=== PATIENT | male | born 1960 | race Caucasian/White ===

== ENCOUNTER 2019-02-08 11:14 | Emergency (ER) | payer SELFPAY ==
[2019-02-08] MEDS ORDERED: ASPIRIN 81 MG TABLET, CHEWABLE PO ONE (11:40)
[2019-02-08] MEDS ORDERED: NITROGLYCERIN/D5W 50 MG/250 ML RTUINJ IV PRN (11:52)
[2019-02-08] MEDS ORDERED: ENOXAPARIN SODIUM INJ 120 MG/0.8 ML DISP.SYRIN SUBCUT ONE (11:53)
[2019-02-08 12:09] LABS: ALANINE AMINOTRANSFERASE 58 U/L (21-72); ALBUMIN 3.5 g/dL (3.5-5.0); ALKALINE PHOSPHATASE 99 U/L (38-126); ANION GAP 12 (5-19); ASPARTATE AMINO TRANSFERASE 66 U/L (17-59); BILIRUBIN,DIRECT 0.3 mg/dL (0.0-0.4); BILIRUBIN,TOTAL 0.6 mg/dL (0.2-1.3); BLOOD UREA NITROGEN 70 mg/dL (7-20); CALCIUM 8.5 mg/dL (8.4-10.2); CARBON DIOXIDE 28 mmol/L (22-30); CHLORIDE 100 mmol/L (98-107); CREATINE KINASE 451 U/L (55-170); GLUCOSE 92 mg/dL (75-110); POTASSIUM 4.1 mmol/L (3.6-5.0); SODIUM 139.5 mmol/L (137-145); TOTAL PROTEIN 6.9 g/dL (6.3-8.2)
[2019-02-08 12:13] LABS: INTERNATIONAL RATION (INR) 1.02; PROTHROMBIN TIME 13.9 SEC (11.4-15.4)
--- NOTE | 2019-02-08 12:13 | RADIOLOGY REPORT (SQ) ---
EXAM DESCRIPTION: CHEST SINGLE VIEW COMPLETED DATE/TIME: 02/08/2019 12:05 pm REASON FOR STUDY: chest pain COMPARISON: None. NUMBER OF VIEWS: One view. TECHNIQUE: Single frontal radiographic view of the chest acquired. LIMITATIONS: None. FINDINGS: LUNGS AND PLEURA: No opacities, masses or pneumothorax. No pleural effusion. MEDIASTINUM AND HILAR STRUCTURES: No masses. Contour normal. HEART AND VASCULAR STRUCTURES: Heart enlarged without failure. Normal vasculature. BONES: No acute findings. HARDWARE: None in the chest. OTHER: No other significant finding. IMPRESSION: HEART ENLARGED WITHOUT FAILURE. NO OTHER SIGNIFICANT RADIOGRAPHIC FINDING IN THE CHEST. TECHNICAL DOCUMENTATION: JOB ID: [id number] [employer]- All Rights Reserved Reading location - IP/workstation name: [email or web address]
[2019-02-08 12:15] LABS: ABSOLUTE BASOPHILS # (AUTO) 0.1 10^3/uL (0.0-0.2); ABSOLUTE EOSINOPHILS # (AUTO) 0.1 10^3/uL (0.0-0.6); ABSOLUTE LYMPHOCYTES (AUTO) 1.6 10^3/uL (0.5-4.7); ABSOLUTE MONOCYTES (AUTO) 1.8 10^3/uL (0.1-1.4); ABSOLUTE NEUT (AUTO) 9.1 10^3/uL (1.7-8.2); BASOPHILS % (AUTO) 0.5 % (0-2); EOSINOPHILS % (AUTO) 0.6 % (0-6); HEMATOCRIT 46.5 % (37.9-51.0); HEMOGLOBIN 15.6 g/dL (13.5-17.0); LYMPHOCYTES % (AUTO) 12.8 % (13-45); MEAN CORPUSCULAR HGB CONC 33.5 g/dL (32.0-36.0); MEAN CORPUSCULAR VOLUME 84 fl (80-97); MONOCYTES % (AUTO) 14.2 % (3-13); PLATELET COUNT 321 10^3/uL (150-450); RED BLOOD COUNT 5.56 10^6/uL (4.35-5.55); RED CELL DISTRIBUTION WIDTH 14.9 % (11.5-14.0); SEGMENTED NEUTROPHILS % (AUTO) 71.9 % (42-78); TOTAL CELLS COUNTED % (AUTO) 100 %; WHITE BLOOD COUNT 12.7 10^3/uL (4.0-10.5)
[2019-02-08 12:20] LABS: CREATINE KINASE MB 3.93 ng/mL (<4.55)
--- NOTE | 2019-02-08 12:22 | ER Document Report ---
ED General - General Chief Complaint: Chest Pain Stated Complaint: CHEST PAIN Time Seen by Provider: 02/08/19 11:40 - HPI Notes: Patient is a 59-year-old male with a history of hypertension, hyperlipidemia, diabetes, presents to the emergency department for evaluation of chest pain. He states that it has been going on for the last several days. He is a very difficult historian. He cannot tell me anything that seems to make it better. He states he woke up this morning and it seemed worse. He believes it was from sleeping on his left shoulder. I asked him to describe it, he states "it just hurts." He denies any associated nausea, diaphoresis, shortness of breath, near syncope. He states that the pain does radiate into his shoulder blade. - Related Data Allergies/Adverse Reactions: No Known Allergies Allergy (Verified 02/08/19 11:15) Past Medical History - General Information source: Patient - Social History Smoking Status: Current Every Day Smoker Drug Abuse: None Family History: Reviewed & Not Pertinent - Past Medical History Cardiac Medical History: Reports: Hx Hypercholesterolemia, Hx Hypertension Denies: Hx Atrial Fibrillation, Hx Congestive Heart Failure, Hx Coronary Artery Disease, Hx Heart Attack, Hx Peripheral Vascular Disease, Hx Pulmonary Embolism, Hx Heart Murmur Pulmonary Medical History: Denies: Hx Asthma, Hx Bronchitis, Hx COPD, Hx Pneumonia, Hx Respiratory Failure, Hx Sleep Apnea, Hx Tuberculosis Neurological Medical History: Denies: Hx Cerebrovascular Accident, Hx Seizures Endocrine Medical History: Denies: Hx Diabetes Mellitus Type 1, Hx Diabetes Mellitus Type 2, Hx Graves' Disease, Hx Hyperthyroidism, Hx Hypothyroidism Renal/ Medical History: Denies: Hx Benign Prostatic Hyperplasia, Hx End Stage Renal Disease, Hx Kidney Stones, Hx Peritoneal Dialysis Malignancy Medical History: Denies Hx Leukemia, Denies Hx Lung Cancer GI Medical History: Reports: Hx Gastroesophageal Reflux Disease. Denies: Hx Crohn's Disease, Hx Hiatal Hernia, Hx Irritable Bowel, Hx Liver Failure, Hx Pancreatitis, Hx Ulcer Musculoskeletal Medical History: Denies Hx Arthritis, Denies Hx Fibromyalgia, Denies Hx Multiple Sclerosis, Denies Hx Muscular Dystrophy, Denies Hx Systemic L upus Erythematosus Psychiatric Medical History: Denies: Hx Bipolar Disorder, Hx Dementia, Hx Depression, Hx Post Traumatic Stress Disorder, Hx Schizophrenia Traumatic Medical History: Reports: Hx Fractures - left arm/shoulder Infectious Medical History: Denies: Hx HIV Past Surgical History: Reports: Hx Tonsillectomy. Denies: Hx Appendectomy, Hx Bowel Surgery, Hx Cholecystectomy, Hx Colostomy, Hx Coronary Artery Bypass Graft, Hx Gastric Bypass Surgery, Hx Herniorrhaphy, Hx Pacemaker - Immunizations Hx Diphtheria, Pertussis, Tetanus Vaccination: - <5 yrs Review of Systems - Review of Systems Constitutional: No symptoms reported EENT: No symptoms reported Cardiovascular: No symptoms reported Respiratory: No symptoms reported Gastrointestinal: No symptoms reported Genitourinary: No symptoms reported Musculoskeletal: No symptoms reported Skin: No symptoms reported Neurological/Psychological: No symptoms reported Physical Exam - Vital signs Vitals: Temp Pulse Resp BP Pulse Ox 98.0 F 81 18 104/66 100 02/08/19 11:18 02/08/19 11:18 02/08/19 11:18 02/08/19 11:02/08/19 11:18 - Notes Notes: Vital signs reviewed, please refer to chart. Head is normocephalic, atraumatic. Pupils equal round, reactive to light. Neck is supple without meningismus. Heart is regular rate and rhythm. Lungs are clear to auscultation bilaterally. Abdomen is soft, nontender, normoactive bowel sounds throughout. Extremities without cyanosis, clubbing. Posterior calves are nontender. Peripheral pulses are equal. Skin is warm and dry. Patient is awake, alert, neurological exam is nonfocal. Course - Re-evaluation Re-evalutation: 02/08/19 12:29 Patient presented to the emergency department for evaluation. I was initially showed this patient's EKG with significant ST elevation anteriorly. I was concerned about the possibility of a STEMI, so I went to evaluate the patient to me early. The patient denied, emphatically and repeatedly, having any sort of pain at all at this time. He was medicated to aspirin, nitroglycerin at a 5 my drip, as well as Lovenox. Unfortunately I did not have his creatinine back at the time of the Lovenox administration. Laboratory investigations were started, decision was made to consult cardiology. I spoke with Dr. Fletcher my inventory control assistant at [facility]. He was sent a picture of the EKG. He states that in the absence of chest pain, without any laboratory abnormalities, he did not feel that acceptance directly by cardiology was necessary. I was notified shortly after getting off the phone, that the patient's troponin was 46. Decision was made at that time to send the patient directly to [facility] cardiology for interventional cardiac catheterization. - Vital Signs Vital signs: Temp Pulse Resp BP Pulse Ox 98.0 F 81 18 104/66 100 02/08/19 11:18 02/08/19 11:18 02/08/19 11:18 02/08/19 11:18 02/08/19 11:18 - Laboratory Result Diagrams: 02/08/19 11:36 02/08/19 11:36 Laboratory results interpreted by me: 02/08/19 02/08/19 11:36 11:36 WBC 12.7 H RBC 5.56 H RDW 14.9 H Lymphocytes % 12.8 L Monocytes % 14.2 H Absolute Neutrophils 9.1 H Absolute Monocytes 1.8 H BUN 70 H Creatinine 2.63 H Est GFR ( Amer) 30 L Est GFR (Non-Af Amer) 25 L AST 66 H Creatine Kinase 451 H - Diagnostic Test Radiology reviewed: Reports reviewed Radiology results interpreted by me: 02/08/19 12:31 Chest X-Ray 02/08/19 11:41 IMPRESSION: HEART ENLARGED WITHOUT FAILURE. NO OTHER SIGNIFICANT RADIOGRAPHIC FINDING IN THE CHEST. - EKG Interpretation by Me Additional EKG results interpreted by me: 02/08/19 12:32 Sinus mechanism with a rate of 88 bpm. Left axis deviation. IVCD. ST elevation anteriorly concerning for acute infarction, but no reciprocal changes noted at this time. Critical Care Note - Critical Care Note Total time excluding time spent on procedures (mins): 20 Discharge - Discharge Clinical Impression: ST elevation (STEMI) myocardial infarction Condition: Stable Disposition: [facility] Admitting Provider: Dr. Fletcher
[2019-02-08 12:25] LABS: TROPONIN I 46.7 ng/mL
[2019-02-08 12:50] VITALS: BP 129/71
--- NOTE | 2019-02-08 17:48 | EKG REPORT ---
SEVERITY:- ABNORMAL ECG - SINUS RHYTHM PROBABLE LEFT ATRIAL ABNORMALITY INFERIOR INFARCT, AGE INDETERMINATE ANTERIOR INFARCT, AGE INDETERMINATE. LATERAL LEADS ARE ALSO INVOLVED : Confirmed by: Linus Zhang MD 08-Feb-2019 17:48:01
--- NOTE | 2019-02-08 17:49 | EKG REPORT ---
SEVERITY:- ABNORMAL ECG - SINUS RHYTHM LEFT ATRIAL ABNORMALITY NONSPECIFIC INTRAVENTRICULAR CONDUCTION DELAY INFERIOR INFARCT, AGE INDETERMINATE EXTENSIVE ANTERIOR INFARCT, ACUTE : Confirmed by: Linus Zhang MD 08-Feb-2019 17:48:42
--- NOTE | 2019-02-08 23:46 | EKG REPORT ---
SEVERITY:- ABNORMAL ECG - SINUS RHYTHM PROBABLE LEFT ATRIAL ABNORMALITY NONSPECIFIC INTRAVENTRICULAR CONDUCTION DELAY INFERIOR INFARCT, AGE INDETERMINATE EXTENSIVE ANTERIOR INFARCT, ACUTE : Confirmed by: Linus Zhang MD 08-Feb-2019 23:46:15
== END 2019-02-08 12:36 | disposition short-term general hospital (02) ==
LOC: ER 11:14
DX: I21.3 ST elevation (STEMI) myocardial infarction of unspecified site (principal); I11.9 Hypertensive heart disease without heart failure; R07.9 Chest pain, unspecified; F17.200 Nicotine dependence, unspecified, uncomplicated; I45.9 Conduction disorder, unspecified
CPT/HCPCS: 93005; 99285; 96372; 36415; 82553; 82962; 82550; 85025; 85610; 80053; 84484; 71045; 93010; J1650; J3490

== ENCOUNTER 2019-05-07 08:10 | Inpatient (IN) | payer OTHER ==
[2019-05-07 09:01] LABS: ABSOLUTE BASOPHILS # (AUTO) 0.1 10^3/uL (0.0-0.2); ABSOLUTE EOSINOPHILS # (AUTO) 0.3 10^3/uL (0.0-0.6); ABSOLUTE LYMPHOCYTES (AUTO) 2.1 10^3/uL (0.5-4.7); ABSOLUTE MONOCYTES (AUTO) 0.8 10^3/uL (0.1-1.4); ABSOLUTE NEUT (AUTO) 6.2 10^3/uL (1.7-8.2); EOSINOPHILS % (AUTO) 3.1 % (0-6); HEMATOCRIT 42.4 % (37.9-51.0); HEMOGLOBIN 14.1 g/dL (13.5-17.0); MEAN CORPUSCULAR HEMOGLOBIN 27.6 pg (27.0-33.4); MEAN CORPUSCULAR HGB CONC 33.4 g/dL (32.0-36.0); MEAN CORPUSCULAR VOLUME 83 fl (80-97); PLATELET COUNT 292 10^3/uL (150-450); RED BLOOD COUNT 5.13 10^6/uL (4.35-5.55); RED CELL DISTRIBUTION WIDTH 16.9 % (11.5-14.0); SEGMENTED NEUTROPHILS % (AUTO) 65.9 % (42-78); TOTAL CELLS COUNTED % (AUTO) 100 %; WHITE BLOOD COUNT 9.5 10^3/uL (4.0-10.5)
--- NOTE | 2019-05-07 09:10 | ER Document Report ---
ED General - General Chief Complaint: Breathing Difficulty Stated Complaint: DIFFICULTY BREATHING Time Seen by Provider: 05/07/19 08:54 Mode of Arrival: Ambulatory Information source: Patient, [facility] Records Notes: This 5-year-old male patient comes emergency room complaining of difficulty breathing for the past 3 months. He was seen here on 02/08/2019 have an extensive anterior wall WA. He was transferred to [facility] and had 2 stents placed. He reports that since then he wakes up during the night and "cannot breathe". He will have to get up, stand up to "get some air in my lungs". This standing up and pacing seems to help. He reports he did tell his pet ambassador about this nocturnal shortness of breath and chest pressure and his complaint like he felt like he has to get up to take control of his breathing. He reports his pet ambassador's stop some meds and added some meds. This did not make any difference initially, but then the patient change the timing of his medication and rather than taking some at 6 AM, he took them at noon. He reports that seem to help his symptoms for a few days, but then he began to wake up during the night with the same sensation of being unable to breathe. The patient does continue to smoke about 1 pack/day, states he has some patches to help, but [facility] - Related Data Allergies/Adverse Reactions: No Known Allergies Allergy (Verified 05/07/19 08:15) Past Medical History - General Information source: Patient - Social History Smoking Status: Current Every Day Smoker Cigarette use (# per day): Yes - 1 PPD Chew tobacco use (# tins/day): No Smoking Education Provided: No Frequency of alcohol use: None Drug Abuse: None Lives with: Spouse/Significant other Family History: Reviewed & Not Pertinent - Past Medical History Cardiac Medical History: Reports: Hx Coronary Artery Disease, Hx Heart Attack, Hx Hypercholesterolemia, Hx Hypertension GI Medical History: Reports: Hx Gastroesophageal Reflux Disease Traumatic Medical History: Reports: Hx Fractures - left arm/shoulder Past Surgical History: Reports: Hx Cardiac Catheterization, Hx Coronary Stent - X2, Hx Tonsillectomy - Immunizations Hx Diphtheria, Pertussis, Tetanus Vaccination: - <5 yrs Physical Exam - Vital signs Vitals: Temp Pulse Resp BP Pulse Ox 97.8 F 102 H 18 200/120 H 96 05/07/19 08:13 05/07/19 08:13 05/07/19 08:13 05/07/19 08:13 05/07/19 08:13 Course - Re-evaluation Re-evalutation: 05/07/19 12:38 The patient's BNP is 3540, 7 years ago it was 185. The patient's troponins is in the indeterminate range, a repeat troponin was slightly lower than the initial one. The patient's symptoms of the nocturnal dyspnea which improved with getting up combined with this markedly elevated BNP suggest the patient may have some degree of congestive failure secondary to his recent extensive anterior wall my ocardial infarction. - Vital Signs Vital signs: Temp Pulse Resp BP Pulse Ox 97.8 F 102 H 22 H 151/96 H 95 05/07/19 08:13 05/07/19 08:13 05/07/19 10:01 05/07/19 10:01 05/07/19 10:01 - Laboratory Result Diagrams: 05/07/19 08:48 05/07/19 08:48 Laboratory results interpreted by me: 05/07/19 05/07/19 05/07/19 08:48 08:48 08:48 RDW 16.9 H BUN 23 H Creatinine 1.73 H Est GFR ( Amer) 49 L Est GFR (Non-Af Amer) 40 L NT-Pro-B Natriuret Pep 3540 H Urine Protein Urine Ascorbic Acid 05/07/19 10:45 RDW BUN Creatinine Est GFR ( Amer) Est GFR (Non-Af Amer) NT-Pro-B Natriuret Pep Urine Protein 100 H Urine Ascorbic Acid 40 H - Diagnostic Test Radiology reviewed: Image reviewed, Reports reviewed - X-ray does not show acute findings. - EKG Interpretation by Me EKG shows normal: Sinus rhythm, Lampe, Intervals, ST-T Waves. abnormal: QRS Complexes - Old inferior infarct. Extensive anterior infarct--this was present on 02/08/2019. Rate: Normal - 99 Rhythm: NSR P Waves: LAE - Consults Dr. Montero Time consulted: 12:25 Consulted provider: will come to ER Discharge - Discharge Clinical Impression: Nocturnal dyspnea Congestive heart failure Qualifiers: Heart failure type: unspecified Heart failure chronicity: unspecified Qualified Code(s): I50.9 - Heart failure, unspecified Coronary artery disease Qualifiers: Coronary Disease-Associated Artery/Lesion type: unspecified vessel or lesion type [place] vs. transplanted heart: [place] heart Associated angina: without angina Qualified Code(s): I25.10 - Atherosclerotic heart disease of [place] coronary artery without angina pectoris Condition: Stable Disposition: ADMITTED INPATIENT Admitting Provider: Kylah (Hospitalist) Unit Admitted: Telemetry
[2019-05-07 09:17] LABS: ALBUMIN 4.1 g/dL (3.5-5.0); ALKALINE PHOSPHATASE 124 U/L (38-126); ANION GAP 10 (5-19); ASPARTATE AMINO TRANSFERASE 18 U/L (17-59); BILIRUBIN,DIRECT 0.2 mg/dL (0.0-0.4); BILIRUBIN,TOTAL 0.4 mg/dL (0.2-1.3); BLOOD UREA NITROGEN 23 mg/dL (7-20); CALCIUM 9.6 mg/dL (8.4-10.2); CARBON DIOXIDE 25 mmol/L (22-30); CHLORIDE 106 mmol/L (98-107); CREATINE KINASE 63 U/L (55-170); GLUCOSE 107 mg/dL (75-110); POTASSIUM 4.6 mmol/L (3.6-5.0); TOTAL PROTEIN 7.3 g/dL (6.3-8.2)
--- NOTE | 2019-05-07 09:25 | RADIOLOGY REPORT (SQ) ---
EXAM DESCRIPTION: CHEST SINGLE VIEW COMPLETED DATE/TIME: 05/07/2019 8:58 am REASON FOR STUDY: bed 20 db COMPARISON: 02/08/2019 EXAM PARAMETERS: NUMBER OF VIEWS: One view. TECHNIQUE: Single frontal radiographic view of the chest acquired. RADIATION DOSE: NA LIMITATIONS: None. FINDINGS: LUNGS AND PLEURA: No opacities, masses or pneumothorax. No pleural effusion. MEDIASTINUM AND HILAR STRUCTURES: No masses. Contour normal. HEART AND VASCULAR STRUCTURES: Heart normal in size. Normal vasculature. BONES: No acute findings. HARDWARE: None in the chest. OTHER: No other significant finding. IMPRESSION: NO ACUTE RADIOGRAPHIC FINDING IN THE CHEST. TECHNICAL DOCUMENTATION: JOB ID: [id number] [employer]- All Rights Reserved Reading location - IP/workstation name: [email or web address]
[2019-05-07 09:29] LABS: CREATINE KINASE MB 1.39 ng/mL (<4.55)
[2019-05-07 09:35] LABS: TROPONIN I 0.04 ng/mL
[2019-05-07 11:10] LABS: APPEARANCE,URINE CLEAR; BILIRUBIN,URINE NEGATIVE (NEGATIVE); COLOR,URINE YELLOW; GLUCOSE, URINE NEGATIVE (NEGATIVE); KETONES,URINE NEGATIVE (NEGATIVE); LEUKOCYTE ESTERASE,URINE NEGATIVE (NEGATIVE); NITRITE,URINE NEGATIVE (NEGATIVE); PROTEIN,URINE 100 mg/dL (NEGATIVE); URINE SPECIFIC GRAVITY 1.015; UROBILINOGEN,URINE NEGATIVE mg/dL (<2.0)
--- NOTE | 2019-05-07 11:24 | EKG REPORT ---
SEVERITY:- ABNORMAL ECG - SINUS RHYTHM PROBABLE LEFT ATRIAL ABNORMALITY PROBABLE INFERIOR INFARCT, OLD EXTENSIVE ANTERIOR INFARCT, ACUTE or subacute : Confirmed by: Rona Sharma 07-May-2019 11:23:33
[2019-05-07] MEDS ORDERED: ONDANSETRON HCL INJ/PF 4 MG/2 ML SDV IV PRN (14:22)
[2019-05-07] MEDS ORDERED: ACETAMINOPHEN 325 MG TABLET PO PRN (14:22)
[2019-05-07] MEDS: ATORVASTATIN CALCIUM 40 MG TABLET PO SCH (15:06)
[2019-05-07] MEDS: CLOPIDOGREL BISULFATE 75 MG TABLET PO SCH (15:07)
[2019-05-07] MEDS: TAMSULOSIN HCL 0.4 MG CAP.SR.24H PO SCH (15:07)
[2019-05-07] MEDS: ASPIRIN 81 MG TABLET, ENT COATED PO SCH (15:07)
--- NOTE | 2019-05-07 16:14 | PDOC H&P ---
History of Present Illness Admission Date/PCP: 05/07/19 13:13 Patient complains of: Shortness of breath History of Present Illness: MECHE MEJÍA is a 59 year old male with a past medical history of hypertension, hyperlipidemia, diabetes and tobacco abuse who presented to the ED complaining of shortness of breath for the last 2 months. Patient states that he has been having shortness of breath for the last 2 months intermittently. He is a poor historian and unable to identify his shortness of breath and when it really occurs. He does not associated with chest pain, jaw pain, left arm weakness, nausea/vomiting, abdominal pain, dizziness or blurry vision. Patient states that in January of this year he came to the ED due to chest pain that time he was found to have a troponin greater than 40 and was transferred to [facility] where he was diagnosed with a heart attack where he remained for almost 1 month. States he was discharged from [facility] and since then has been having shortness of breath intermittently. He does have a attribute his shortness of breath to laying down sometimes flat on his back and states that sometimes he has to stand up which helps resolve his shortness of breath. He also admits to being to to hand method lasting machine operator since discharge and talking to them about it. Today he came to the ER because nobody was able to tell him about her shortness of breath and he was just getting tired of waiting. He tells me that he has a cardiology appointment next week and will be following up with his hand method lasting machine operator although he does not know the name. When I walked into the ER to see patient he was sitting there comfortably, without any pain or shortness of breath, and eating [employer] burgers with soda and fries. Hospitalist were consulted due to suspected CHF given his history of shortness of breath while laying flat. Past Medical History Cardiac Medical History: Reports: Coronary Artery Disease, Myocardial Infarction, Hyperlipidema, Hypertension Denies: Atrial Fibrillation, Congestive Heart Failure Pulmonary Medical History: Denies: Asthma, Bronchitis, Chronic Obstructive Pulmonary Disease (COPD), Pneumonia, Tuberculosis Neurological Medical History: Denies: Seizures Endocrine Medical History: Denies: Diabetes Mellitus Type 1, Diabetes Mellitus Type 2 Renal/ Medical History: Denies: End Stage Renal Disease Malignancy Medical History: Denies: Breast Cancer, Cervical Cancer, Ovarian Cancer GI Medical History: Reports: Gastroesophageal Reflux Disease Denies: Hiatal Hernia Musculoskeltal Medical History: Denies: Arthritis Psychiatric Medical History: Denies: Bipolar Disorder, Depression Hematology: Denies: Anemia, Hemophilia, Sickle Cell Disease Past Surgical History Past Surgical History: Reports: Cardiac Catheterization, Coronary Stent - X2, Tonsillectomy Denies: Appendectomy, Cholecystectomy Social History Lives with: Spouse/Significant other Smoking Status: Current Every Day Smoker Hx Recreational Drug Use: No Hx Prescription Drug Abuse: No - Advance Directive Resuscitation Status: Full Code Family History Family History: Reviewed & Not Pertinent Parental Family History Reviewed: Yes Children Family History Reviewed: Unknown Sibling(s) Family History Reviewed.: Unknown Medication/Allergy Home Medications: Aspirin [Adult Low Dose Aspirin EC] 81 mg PO DAILY 05/07/19 Atorvastatin Calcium [Lipitor 40 mg Tablet] 40 mg PO DAILY 05/07/19 Clopidogrel Bisulfate [Plavix 75 mg Tablet] 75 mg PO DAILY 05/07/19 Furosemide [Lasix 40 mg Tablet] 40 mg PO DAILY 05/07/19 Lisinopril [Zestril] 20 mg PO DAILY 05/07/19 Tamsulosin HCl [Flomax] 0.4 mg PO DAILY 05/07/19 Allergies/Adverse Reactions: No Known Allergies Allergy (Verified 05/07/19 08:15) Review of Systems Constitutional: ABSENT: fever(s) Eyes: ABSENT: visual disturbances Nose, Mouth, and Throat: ABSENT: sore throat Cardiovascular: PRESENT: orthropnea. ABSENT: chest pain, dyspnea on exertion, edema Respiratory: PRESENT: other - Shortness of breath Gastrointestinal: ABSENT: abdominal pain, dysphagia, heartburn, nausea, vomiting Genitourinary: ABSENT: dysuria Neurological: ABSENT: focal weakness, syncope Psychiatric: ABSENT: hallucinations Hematologic/Lymphatic: ABSENT: easy bleeding Physical Exam Vital Signs: Temp Pulse Resp BP Pulse Ox 97.8 F 102 H 26 H 158/95 H 93 05/07/19 08:13 05/07/19 08:13 05/07/19 13:01 05/07/19 13:01 05/07/19 13:01 Intake & Output 05/06/19 05/07/19 05/08/19 06:59 06:59 06:59 Weight 234 lb 5.622 oz General appearance: PRESENT: no acute distress Head exam: PRESENT: atraumatic, normocephalic Eye exam: PRESENT: EOMI Mouth exam: PRESENT: moist Neck exam: ABSENT: tracheal deviation Respiratory exam: PRESENT: decreased breath sounds - Bilaterally and mostly at the bases, symmetrical Cardiovascular exam: PRESENT: +S1, +S2 Pulses: PRESENT: +2 pedal pulses bilateral GI/Abdominal exam: PRESENT: normal bowel sounds, soft. ABSENT: tenderness Extremities exam: PRESENT: pedal edema - Trace pedal edema Musculoskeletal exam: PRESENT: full ROM, normal inspection Neurological exam: PRESENT: alert, awake, oriented to person, oriented to place, CN II-XII grossly intact Skin exam: PRESENT: dry, warm Results Laboratory Results: 05/07/19 08:48 05/07/19 08:48 05/07/19 05/07/19 05/07/19 08:48 08:48 10:45 WBC 9.5 RBC 5.13 Hgb 14.1 Hct 42.4 MCV 83 MCH 27.6 MCHC 33.4 RDW 16.9 H Plt Count 292 Seg Neutrophils % 65.9 Lymphocytes % 22.0 Monocytes % 8.0 Eosinophils % 3.1 Basophils % 1.0 Absolute Neutrophils 6.2 Absolute Lymphocytes 2.1 Absolute Monocytes 0.8 Absolute Eosinophils 0.3 Absolute Basophils 0.1 Sodium 141.0 Potassium 4.6 Chloride 106 Carbon Dioxide 25 Anion Gap 10 BUN 23 H Creatinine 1.73 H Est GFR ( Amer) 49 L Est GFR (Non-Af Amer) 40 L Glucose 107 Calcium 9.6 Total Bilirubin 0.4 AST 18 Alkaline Phosphatase 124 Total Protein 7.3 Albumin 4.1 Urine Color YELLOW Urine Appearance CLEAR Urine pH 5.0 Ur Specific Cook 1.015 Urine Protein 100 H Urine Glucose (UA) NEGATIVE Urine Ketones NEGATIVE Urine Blood NEGATIVE Urine Nitrite NEGATIVE Ur Leukocyte Esterase NEGATIVE Urine WBC (Auto) 2 Urine RBC (Auto) 0 05/07/19 05/07/19 05/07/19 08:48 08:48 08:48 Creatine Kinase 63 CK-MB (CK-2) 1.39 Troponin I 0.040 NT-Pro-B Natriuret Pep 3540 H 05/07/19 11:12 Creatine Kinase CK-MB (CK-2) Troponin I 0.039 NT-Pro-B Natriuret Pep Impressions: Chest X-Ray 05/07/19 08:12 IMPRESSION: NO ACUTE RADIOGRAPHIC FINDING IN THE CHEST. Assessment and Plan - Diagnosis (1) Shortness of breath Is this a current diagnosis for this admission?: Yes (2) Hypertension Is this a current diagnosis for this admission?: Yes (3) Tobacco abuse disorder Is this a current diagnosis for this admission?: Yes (4) Congestive heart failure Qualifiers: Heart failure type: unspecified Heart failure chronicity: unspecified Qualified Code(s): I50.9 - Heart failure, unspecified Is this a current diagnosis for this admission?: Yes (5) Coronary artery disease Qualifiers: Coronary Disease-Associated Artery/Lesion type: unspecified vessel or lesion type [place] vs. transplanted heart: [place] heart Associated angina: without angina Qualified Code(s): I25.10 - Atherosclerotic heart disease of [place] coronary artery without angina pectoris Is this a current diagnosis for this admission?: Yes - Time Time Spent with patient: 35 or more minutes Medications reviewed and adjusted accordingly: Yes Anticipated discharge: Home Within: within 48 hours - Inpatient Certification Based on my medical assessment, after consideration of the patient's comorbidities, presenting symptoms, or acuity I expect that the services needed warrant INPATIENT care.: Yes I certify that my determination is in accordance with my understanding of Medicare's requirements for reasonable and necessary INPATIENT services [42 CFR 412.3e].: Yes Medical Necessity: Need For Continuous Telemetry Monitoring, Risk of Complication if Not Cared For in Hospital - Plan Summary Plan Summary: Shortness of breath-with recent history of an STEMI which was diagnosed in January of this year we will have to rule out cardiac event versus heart failure. His EKG looks similar to the one from January. He was transferred to [place] at that time and I have asked nursing to get records for his echo from January of this year. He is on Lasix at home and I will continue that-his BNP is elevated and greater than 3000 although his chest x-ray does not show any edema. He however attest to shortness of breath while laying flat at night. We will trend troponins and recheck electrolytes in the morning. Coronary artery disease with stents x2-we will continue with his aspirin, Plavix and metoprolol and statin. Hypertension-stable continue with metoprolol Tobacco abuse-he still continues to smoke half pack a day-I have counseled him on tobacco abuse.
--- NOTE | 2019-05-07 17:33 | ADVANCED CARE ---
- Diagnosis (1) Shortness of breath Diagnosis Current: Yes (2) Hypertension Diagnosis Current: Yes (3) Tobacco abuse disorder Diagnosis Current: Yes (4) Congestive heart failure Diagnosis Current: Yes (5) Coronary artery disease Diagnosis Current: Yes (6) Elevated troponin Diagnosis Current: Yes (7) Elevated serum creatinine Diagnosis Current: Yes Resuscitation Status: Full Code Discussion: Spoke with patient regarding his wishes about resuscitation-I explained to him what it needs to be DNR versus full code and also partial code. We went over different scenarios during his stay in the hospital. After much discussion he informed me that he would like full resuscitation and everything to be done at this time. I asked him who will be his surrogate decision-maker if the time should arrive and he tells me it is his [id number] Dorota Jeremiah Time Spent: 20
[2019-05-07] MEDS: HYDRALAZINE HCL INJ/PF 20 MG/1 ML SDV IV PRN ×2 (18:56→22:55)
[2019-05-07 18:59] LABS: ARTERIAL BLOOD H2CO3 1.08 mmol/L (1.05-1.35); ARTERIAL BLOOD HCO3 24.5 mmol/L (20-24); ARTERIAL BLOOD O2 SATURATION 93.8 % (94-98); ARTERIAL BLOOD PCO2 35.8 mmHg (35-45); ARTERIAL BLOOD PH 7.45 (7.35-7.45); ARTERIAL BLOOD PO2 65.2 mmHg (80-100); ARTERIAL BLOOD TOTAL CO2 25.6 mmol/L (23-27)
[2019-05-07 19:00] LABS: ARTERIAL BLOOD FIO2 ROOM AIR
[2019-05-07] MEDS ORDERED: LISINOPRIL 10 MG TABLET PO SCH (20:00)
[2019-05-07] MEDS: HEPARIN SOD (PORCINE) 5,000 UNIT/ML 1 ML VIAL SUBCUT SCH (22:57)
[2019-05-08] MEDS: HEPARIN SOD (PORCINE) 5,000 UNIT/ML 1 ML VIAL SUBCUT SCH ×3 (05:06→21:46)
[2019-05-08 05:59] LABS: HEMATOCRIT 41.5 % (37.9-51.0); HEMOGLOBIN 13.7 g/dL (13.5-17.0); MEAN CORPUSCULAR HEMOGLOBIN 27.3 pg (27.0-33.4); MEAN CORPUSCULAR HGB CONC 33.1 g/dL (32.0-36.0); MEAN CORPUSCULAR VOLUME 83 fl (80-97); PLATELET COUNT 297 10^3/uL (150-450); RED BLOOD COUNT 5.02 10^6/uL (4.35-5.55); RED CELL DISTRIBUTION WIDTH 17.1 % (11.5-14.0); WHITE BLOOD COUNT 10.2 10^3/uL (4.0-10.5)
[2019-05-08 06:29] LABS: ANION GAP 7 (5-19); BLOOD UREA NITROGEN 21 mg/dL (7-20); CALCIUM 9.3 mg/dL (8.4-10.2); CARBON DIOXIDE 23 mmol/L (22-30); CHLORIDE 110 mmol/L (98-107); GLUCOSE 107 mg/dL (75-110); POTASSIUM 4.7 mmol/L (3.6-5.0)
[2019-05-08] MEDS: IPRATROPIUM/ALBUTEROL 0.5-2.5 MG/3 ML AMPUL NEB SCH ×4 (08:56→21:16)
[2019-05-08] MEDS: CLOPIDOGREL BISULFATE 75 MG TABLET PO SCH (09:43)
[2019-05-08] MEDS: ASPIRIN 81 MG TABLET, ENT COATED PO SCH (09:43)
[2019-05-08] MEDS: METOPROLOL TARTRATE 25 MG TABLET PO SCH ×2 (09:43→21:46)
[2019-05-08] MEDS: TAMSULOSIN HCL 0.4 MG CAP.SR.24H PO SCH (09:43)
[2019-05-08] MEDS ORDERED: (PENDING PHARMACY ID) (Lisinopril [Zestril] 20 MG) PO SCH (10:00)
[2019-05-08] MEDS ORDERED: FUROSEMIDE 40 MG TABLET PO SCH (10:00)
--- NOTE | 2019-05-08 16:56 | PDOC PROGRESS REPORT ---
Subjective Progress Note for:: 05/08/19 - Seen on rounds this morning. Subjective:: Spoke with patient at bedside and he still seems to be short of breath with some conversational dyspnea while he is talking to me. Discussed about his shortness of breath and the need to call cardiology. Finally he gave me a name of the practice that he visited last week and I did call them and speak with them-see my assessment and plan. He denies any chest pain still, abdominal pain, nausea/vomiting, jaw pain, left arm pain, or dizziness. Reason For Visit: ACUTE ON CHRONIC SYSTOLIC HEART FAILURE Physical Exam Vital Signs: Temp Pulse Resp BP Pulse Ox 97.8 F 85 16 135/85 H 100 05/08/19 15:23 05/08/19 16:36 05/08/19 16:36 05/08/19 15:23 05/08/19 16:36 Intake & Output 05/07/19 05/08/19 05/09/19 06:59 06:59 06:59 Intake Total 876 480 Output Total 900 Balance 876 -420 Weight 230 lb 6.129 oz Results Laboratory Results: 05/08/19 05:07 05/08/19 05:07 05/07/19 05/08/19 05/08/19 18:50 05:07 05:07 WBC 10.2 RBC 5.02 Hgb 13.7 Hct 41.5 MCV 83 MCH 27.3 MCHC 33.1 RDW 17.1 H Plt Count 297 Carbonic Acid 1.08 HCO3/H2CO3 Ratio 22:1 ABG pH 7.45 ABG pCO2 35.8 ABG pO2 65.2 L ABG HCO3 24.5 H ABG O2 Saturation 93.8 L ABG Base Excess 1.0 FiO2 ROOM AIR Sodium 139.8 Potassium 4.7 Chloride 110 H Carbon Dioxide 23 Anion Gap 7 BUN 21 H Creatinine 1.64 H Est GFR ( Amer) 52 L Est GFR (Non-Af Amer) 43 L Glucose 107 Calcium 9.3 Magnesium 2.2 TSH 05/08/19 05:07 WBC RBC Hgb Hct MCV MCH MCHC RDW Plt Count Carbonic Acid HCO3/H2CO3 Ratio ABG pH ABG pCO2 ABG pO2 ABG HCO3 ABG O2 Saturation ABG Base Excess FiO2 Sodium Potassium Chloride Carbon Dioxide Anion Gap BUN Creatinine Est GFR ( Amer) Est GFR (Non-Af Amer) Glucose Calcium Magnesium TSH 3.18 05/07/19 05/07/19 05/07/19 08:48 08:48 08:48 Creatine Kinase 63 CK-MB (CK-2) 1.39 Troponin I 0.040 NT-Pro-B Natriuret Pep 3540 H 05/07/19 05/07/19 05/07/19 11:12 17:20 23:04 Creatine Kinase CK-MB (CK-2) Troponin I 0.039 0.039 0.046 NT-Pro-B Natriuret Pep 05/08/19 05:12 Creatine Kinase CK-MB (CK-2) Troponin I 0.049 NT-Pro-B Natriuret Pep Impressions: Chest X-Ray 05/07/19 08:12 IMPRESSION: NO ACUTE RADIOGRAPHIC FINDING IN THE CHEST. Assessment and Plan - Diagnosis (1) Acute on chronic systolic (congestive) heart failure Is this a current diagnosis for this admission?: Yes (2) Shortness of breath Is this a current diagnosis for this admission?: Yes (3) Hypertension Is this a current diagnosis for this admission?: Yes (4) Tobacco abuse disorder Is this a current diagnosis for this admission?: Yes (5) Congestive heart failure Qualifiers: Heart failure type: unspecified Heart failure chronicity: unspecified Qualified Code(s): I50.9 - Heart failure, unspecified Is this a current diagnosis for this admission?: Yes (6) Coronary artery disease Qualifiers: Coronary Disease-Associated Artery/Lesion type: unspecified vessel or lesion type [place] vs. transplanted heart: [place] heart Associated angina: without angina Qualified Code(s): I25.10 - Atherosclerotic heart disease of [place] coronary artery without angina pectoris Is this a current diagnosis for this admission?: Yes (7) Elevated troponin Is this a current diagnosis for this admission?: Yes (8) Elevated serum creatinine Is this a current diagnosis for this admission?: Yes - Time Time Spent with patient: 25-34 minutes - Inpatient Certification Based on my medical assessment, after consideration of the patient's comorbidities, presenting symptoms, or acuity I expect that the services needed warrant INPATIENT care.: Yes I certify that my determination is in accordance with my understanding of Medicare's requirements for reasonable and necessary INPATIENT services [42 CFR 412.3e].: Yes Medical Necessity: Failure to Improve With Outpatient Therapy, Significant Comorbidiites Make Outpatient Treatment Too Risky, Need For Continuous Telemetry Monitoring, Risk of Complication if Not Cared For in Hospital - Plan Summary Plan Summary: Acute on chronic systolic heart failure-his shortness of breath most likely secondary to an EF of 40% on echo from January 2019. This information was received by me from his pageant director, , from [facility] that I spoke with at bedside with patient. Geospatial Applications Developer tells me that he does have a bad EF and most likely he is in heart failure hence he recommends to aggressively diurese him. Given the fact that he is in heart failure we will continue with with Lasix but switch him to IV 40 mg twice daily. Monitor I's and O's and and daily weights. Coronary artery disease with stents x2-we will continue with his aspirin, Plavix, GRICEL inhibitor, and metoprolol and statin. He had a recent history of STEMI in January 2019 and was transferred to [facility] emergently. Hypertension-continue with lisinopril 20 mg and I have also added metoprolol 12.5 mg twice daily to his regimen. Tobacco abuse-he still continues to smoke half pack a day-I have counseled him on tobacco abuse. Elevated troponin-troponin seem to have flattened out at 0.049-I did not think he is having any cardiac event and this may be all a demand mismatch. CKD-unclear what his baseline is but creatinine is elevated and per his card iologist his creatinine has been around 1.5-1.7. Repeat BMP and monitor electrolytes closely.
[2019-05-08] MEDS: ATORVASTATIN CALCIUM 40 MG TABLET PO SCH (21:46)
[2019-05-08] MEDS: FUROSEMIDE INJ/PF 40 MG/4 ML SDV IV SCH (21:47)
[2019-05-09 04:46] VITALS: BP 133/78
[2019-05-09] MEDS: HEPARIN SOD (PORCINE) 5,000 UNIT/ML 1 ML VIAL SUBCUT SCH (05:35)
[2019-05-09 06:13] LABS: ANION GAP 9 (5-19); BLOOD UREA NITROGEN 23 mg/dL (7-20); CALCIUM 9.2 mg/dL (8.4-10.2); CARBON DIOXIDE 25 mmol/L (22-30); CHLORIDE 107 mmol/L (98-107); GLUCOSE 102 mg/dL (75-110); POTASSIUM 4.3 mmol/L (3.6-5.0)
[2019-05-09] MEDS: IPRATROPIUM/ALBUTEROL 0.5-2.5 MG/3 ML AMPUL NEB SCH (08:31)
[2019-05-09] MEDS: FUROSEMIDE INJ/PF 40 MG/4 ML SDV IV SCH (09:46)
[2019-05-09] MEDS: CLOPIDOGREL BISULFATE 75 MG TABLET PO SCH (09:46)
[2019-05-09] MEDS: ASPIRIN 81 MG TABLET, ENT COATED PO SCH (09:46)
[2019-05-09] MEDS: TAMSULOSIN HCL 0.4 MG CAP.SR.24H PO SCH (09:46)
[2019-05-09] MEDS: METOPROLOL TARTRATE 25 MG TABLET PO SCH (09:46)
--- NOTE | 2019-05-09 10:29 | EKG REPORT ---
SEVERITY:- ABNORMAL ECG - SINUS RHYTHM PROBABLE LEFT ATRIAL ABNORMALITY PROBABLE INFERIOR INFARCT, AGE INDETERMINATE ANTEROLATERAL INFARCT, RECENT : Confirmed by: Rona Sharma 09-May-2019 10:28:02
--- NOTE | 2019-05-12 13:09 | PDOC DISCHARGE SUMMARY ---
General - Admit/Disc Date/PCP Admission Date/Primary Care Provider: 05/08/19 15:11 Discharge Date: 05/09/19 - Discharge Diagnosis (1) Acute on chronic systolic (congestive) heart failure Is this a current diagnosis for this admission?: Yes (2) Coronary artery disease Is this a current diagnosis for this admission?: Yes (3) Elevated serum creatinine Is this a current diagnosis for this admission?: Yes (4) Elevated troponin Is this a current diagnosis for this admission?: Yes (5) Hypertension Is this a current diagnosis for this admission?: Yes (7) Shortness of breath Is this a current diagnosis for this admission?: Yes (8) Tobacco abuse disorder Is this a current diagnosis for this admission?: Yes - Additional Information Resuscitation Status: Full Code Discharge Diet: Cardiac Discharge Activity: Activity As Tolerated, Balance Activity w/Rest, Weigh Daily Prescriptions: Furosemide [Lasix 40 mg Tablet] 60 mg PO DAILY #30 tablet Metoprolol Tartrate [Lopressor 25 mg Tablet] 12.5 mg PO Q12 #30 tablet Home Medications: Aspirin [Adult Low Dose Aspirin EC] 81 mg PO DAILY 05/07/19 Atorvastatin Calcium [Lipitor 40 mg Tablet] 40 mg PO DAILY 05/07/19 Clopidogrel Bisulfate [Plavix 75 mg Tablet] 75 mg PO DAILY 05/07/19 Lisinopril [Zestril] 20 mg PO DAILY 05/07/19 Tamsulosin HCl [Flomax] 0.4 mg PO DAILY 05/07/19 Acetaminophen [Tylenol 325 mg Tablet] 650 mg PO Q4HP PRN tablet 05/09/19 Furosemide [Lasix 40 mg Tablet] 60 mg PO DAILY #30 tablet 05/09/19 Metoprolol Tartrate [Lopressor 25 mg Tablet] 12.5 mg PO Q12 #30 tablet 05/09/19 History of Present Illness History of Present Illness: Per H&P by Dut: MECHE MEJÍA is a 59 year old male with a past medical history of hypertension, hyperlipidemia, diabetes and tobacco abuse who presented to the ED complaining of shortness of breath for the last 2 months. Patient states that he has been having shortness of breath for the last 2 months intermittently. He is a poor historian and unable to identify his shortness of breath and when it really occurs. He does not associated with chest pain, jaw pain, left arm weakness, nausea/vomiting, abdominal pain, dizziness or blurry vision. Patient states that in January of this year he came to the ED due to chest pain that time he was found to have a troponin greater than 40 and was transferred to [facility] where he was diagnosed with a heart attack where he remained for almost 1 month. States he was discharged from [facility] and since then has been having shortness of breath intermittently. He does have a attribute his shortness of breath to laying down sometimes flat on his back and states that sometimes he has to stand up which helps resolve his shortness of breath. He also admits to being to to white hat hacker since discharge and talking to them about it. Today he came to the ER because nobody was able to tell him about her shortness of breath and he was just getting tired of waiting. He tells me that he has a cardiology appointment next week and will be following up with his white hat hacker although he does not know the name. When I walked into the ER to see patient he was sitting there comfortably, without any pain or shortness of breath, and eating [employer] burgers with soda and fries. Hospitalist were consulted due to suspected CHF given his history of shortness of breath while laying flat. Hospital Course Hospital Course: The aptient was admitted to the medical floor on continuous cardiac telemetry for management of mild CHF exacerbation. The previous provider spoke with the patient's established white hat hacker; advised diuresis and to keep follow up appointment scheduled for next week. Patient was placed on a cardiac diet and educated on the importance of a low sodium diet. Despite this, the patient continues to misunderstand the inherent sodium content of most foods (did not appreciate that cheese, most fast foods, and prepared foods; i.e. cheeseburger, kyrgyz fries, frozen meals, etc have a high sodium content). He will benefit from further dietary and lifestyle modification education. The patient's antihypertensive regiment was continued. Troponins were trended; remained indeterminently elevated but flat, x5. Patient denied chest pain symptoms. His symptoms gradually improved and on day of discharge the patient reported that he was able to sleep, supine, on room air with out nocturnal dyspnea. He also is maintainining oxygen saturations on room air without increased work of breathing. Patient is discharged to home in stable condition. He is advised of the importance of keeping his scheduled cardiology appointment next week. He is also encouraged to follow up with his PCP within 1 week. He is instructed to take his medications as prescribed and to pay increased attention to nutritional content/sodium in foods. He is instructed to weigh himself daily and to report any weight gain >2 lbs to his doctor. He is encouraged to return to the emergency department as needed for concerning symptoms. Physical Exam Vital Signs: Temp Pulse Resp BP Pulse Ox 97.5 F 74 16 133/78 H 94 05/09/19 11:38 05/09/19 11:38 05/09/19 11:38 05/09/19 11:38 05/09/19 11:38 General appearance: PRESENT: no acute distress, cooperative, obese, well-develop ed, well-nourished Head exam: PRESENT: atraumatic, normocephalic Eye exam: PRESENT: conjunctiva pink, EOMI, PERRLA. ABSENT: scleral icterus Ear exam: PRESENT: normal external ear exam Mouth exam: PRESENT: moist, tongue midline Neck exam: ABSENT: carotid bruit, JVD, lymphadenopathy, thyromegaly Respiratory exam: PRESENT: clear to auscultation ivan, symmetrical, unlabored. ABSENT: rales, rhonchi, wheezes Cardiovascular exam: PRESENT: RRR. ABSENT: diastolic murmur, rubs, systolic murmur Pulses: PRESENT: normal dorsalis pedis pul Vascular exam: PRESENT: normal capillary refill GI/Abdominal exam: PRESENT: normal bowel sounds, soft. ABSENT: distended, guarding, mass, organolmegaly, rebound, tenderness Rectal exam: PRESENT: deferred Extremities exam: PRESENT: full ROM. ABSENT: calf tenderness, clubbing, pedal edema Musculoskeletal exam: PRESENT: ambulatory Neurological exam: PRESENT: alert, awake, oriented to person, oriented to place, oriented to time, oriented to situation, CN II-XII grossly intact. ABSENT: motor sensory deficit Psychiatric exam: PRESENT: appropriate affect, normal mood. ABSENT: homicidal i deation, suicidal ideation Skin exam: PRESENT: dry, intact, warm. ABSENT: cyanosis, rash Results Laboratory Results: 05/08/19 05:07 05/09/19 05:15 05/07/19 05/07/19 05/07/19 08:48 08:48 08:48 Creatine Kinase 63 CK-MB (CK-2) 1.39 Troponin I 0.040 NT-Pro-B Natriuret Pep 3540 H 05/07/19 05/07/19 05/07/19 11:12 17:20 23:04 Creatine Kinase CK-MB (CK-2) Troponin I 0.039 0.039 0.046 NT-Pro-B Natriuret Pep 05/08/19 05:12 Creatine Kinase CK-MB (CK-2) Troponin I 0.049 NT-Pro-B Natriuret Pep Impressions: Chest X-Ray 05/07/19 08:12 IMPRESSION: NO ACUTE RADIOGRAPHIC FINDING IN THE CHEST. Qualifiers - * PATIENT BEING DISCHARGED WITH ANY OF THE FOLLOWING DIAGNOSIS: No Acute Heart Failure - Is this a Heart Failure Patient?: Yes Documentation of LVEF assessment?: Planned for after discharge LVEF < 40%?: No- if no continue to question #3 3. Anticoagulant therapy for permanect/persistent/paraoxysmal Afib or Aflutter: N/A Plan Discharge Plan: Patient is discharged home in stable condition. Follow up with primary care provider within 1 week. Recommend overnight sleep study to assess for CINDY. Follow up with white hat hacker as scheduled next week. Take your medications as prescribed. Eat a low sodium (salt) diet. Return to the emergency department as needed for concerning symptoms. Time Spent: Greater than 30 Minutes
== END 2019-05-09 12:15 | disposition home or self-care (01) | DRG 293 ==
LOC: ER 08:10 → EH 13:13 → INTOOBSV 13:13 → 4S 16:26 → OBSVTOIN 05-08 15:11
PROVIDERS: ADMIT Family Medicine; ATTEND Family Medicine
DX: I11.0 Hypertensive heart disease with heart failure (principal); I50.23 Acute on chronic systolic (congestive) heart failure; I25.10 Atherosclerotic heart disease of native coronary artery without angina pectoris; E78.5 Hyperlipidemia, unspecified; E11.9 Type 2 diabetes mellitus without complications; K21.9 Gastro-esophageal reflux disease without esophagitis; R74.8 Abnormal levels of other serum enzymes; F17.219 Nicotine dependence, cigarettes, with unspecified nicotine-induced disorders; E78.00 Pure hypercholesterolemia, unspecified; I25.2 Old myocardial infarction; Z95.5 Presence of coronary angioplasty implant and graft; Z79.02 Long term (current) use of antithrombotics/antiplatelets; Z79.82 Long term (current) use of aspirin; Z79.899 Other long term (current) drug therapy; Z09 Encounter for follow-up examination after completed treatment for conditions other than malignant neoplasm
CPT/HCPCS: 36415; 71045; 80048; 80053; 81001; 82550; 82553; 82803; 83735; 83880; 84443; 84484; 85025; 85027; 93005; 93010; 99285; G0378; J0360; J1644; J1940; J3490; J7620

== ENCOUNTER 2019-05-23 04:10 | Emergency (ER) | payer OTHER ==
[2019-05-23] MEDS ORDERED: ASPIRIN 81 MG TABLET, CHEWABLE PO ONE (04:35)
[2019-05-23 04:52] LABS: ABSOLUTE BASOPHILS # (AUTO) 0.1 10^3/uL (0.0-0.2); ABSOLUTE EOSINOPHILS # (AUTO) 0.2 10^3/uL (0.0-0.6); ABSOLUTE LYMPHOCYTES (AUTO) 1.4 10^3/uL (0.5-4.7); ABSOLUTE MONOCYTES (AUTO) 0.9 10^3/uL (0.1-1.4); ABSOLUTE NEUT (AUTO) 11.1 10^3/uL (1.7-8.2); BASOPHILS % (AUTO) 0.5 % (0-2); EOSINOPHILS % (AUTO) 1.3 % (0-6); HEMOGLOBIN 13.5 g/dL (13.5-17.0); LYMPHOCYTES % (AUTO) 10.5 % (13-45); MEAN CORPUSCULAR HEMOGLOBIN 26.7 pg (27.0-33.4); MEAN CORPUSCULAR HGB CONC 32.9 g/dL (32.0-36.0); MEAN CORPUSCULAR VOLUME 81 fl (80-97); MONOCYTES % (AUTO) 6.7 % (3-13); PLATELET COUNT 303 10^3/uL (150-450); RED BLOOD COUNT 5.06 10^6/uL (4.35-5.55); RED CELL DISTRIBUTION WIDTH 16.7 % (11.5-14.0); TOTAL CELLS COUNTED % (AUTO) 100 %; WHITE BLOOD COUNT 13.8 10^3/uL (4.0-10.5)
--- NOTE | 2019-05-23 05:15 | RADIOLOGY REPORT (SQ) ---
EXAM DESCRIPTION: XR CHEST 1 VIEW COMPLETED DATE/TME: 05/23/2019 04:35 CLINICAL HISTORY: 59 years, Male, chest pain COMPARISON: 05/07/2019 NUMBER OF VIEWS: One TECHNIQUE: AP view of the chest LIMITATIONS: None. FINDINGS: Lungs are clear. The heart is enlarged. There is no pneumothorax or pleural effusion. There is no acute fracture. IMPRESSION: No acute cardiopulmonary abnormality copyright 2010 [employer]- All Rights Reserved
[2019-05-23 05:16] LABS: CREATINE KINASE MB 1.15 ng/mL (<4.55)
[2019-05-23 05:21] LABS: TROPONIN I 0.037 ng/mL
--- NOTE | 2019-05-23 06:36 | RADIOLOGY REPORT (SQ) ---
CT head without contrast on 05/23/2019 at 6:10 AM CLINICAL INDICATION: Pressure in right eye TECHNIQUE: Multiple axial images are obtained throughout the head without the administration of contrast. This exam was performed according to our departmental dose-optimization program, which includes automated exposure control, adjustment of the mA and/or kV according to patient size and/or use of iterative reconstruction technique. Total DLP is 990.56 mGy*cm. COMPARISON: None FINDINGS: There is no hydrocephalus. There is no CT evidence of acute infarct. There is no hemorrhage. There are no abnormal extra-axial fluid collections. There is no mass, mass effect or midline shift. There is complete opacification of the right maxillary sinus with also opacification of much of the right frontal and ethmoid sinuses consistent with changes of sinusitis. No bony abnormality is noted. IMPRESSION: 1. No acute intracranial abnormality. 2. Right maxillary, ethmoid and frontal sinusitis.
--- NOTE | 2019-05-23 07:14 | ER Document Report ---
ED General - General Chief Complaint: Eye Pain Stated Complaint: SHORTNESS OF BREATH,RIGHT EYE PAIN Time Seen by Provider: 05/23/19 05:01 Notes: Patient is a 59-year-old male presents to the emergency department with pain in his right eye. Patient states he has pain in the right eyebrow as well as in his right nostril. Patient states when he breathes in cold air to his right nostril he has pain. Patient's complaining of generalized frontal headache. Patient states also when he coughs he has some generalized frontal sinus pain. Patient's denying any respiratory distress or chest pain at this time. Patient voices that he was recently admitted to the hospital for chest pain and respiratory distress. States sometimes he breathes fast but that is normal for him. Patient states he parked his car "so far away from the ER" that once he walked into the emergency department he may have seemed short of breath but he did not feel short of breath. Patient is adamant that he does not feel short of breath and is denying any chest pain. Patient states from time to time he does have a dry cough but is denying any nasal congestion or fevers. TRAVEL OUTSIDE OF THE [place] IN LAST 30 DAYS: No - Related Data Allergies/Adverse Reactions: No Known Allergies Allergy (Verified 05/07/19 08:15) Past Medical History - General Information source: Patient - Social History Smoking Status: Current Every Day Smoker Chew tobacco use (# tins/day): No Frequency of alcohol use: None Drug Abuse: None Family History: Reviewed & Not Pertinent Patient has suicidal ideation: No Patient has homicidal ideation: No - Past Medical History Cardiac Medical History: Reports: Hx Coronary Artery Disease, Hx Heart Attack - january 2019, Hx Hypercholesterolemia, Hx Hypertension Denies: Hx Atrial Fibrillation, Hx Congestive Heart Failure Pulmonary Medical History: Denies: Hx Asthma, Hx Bronchitis, Hx COPD, Hx Pneumonia, Hx Tuberculosis Neurological Medical History: Denies: Hx Seizures Endocrine Medical History: Denies: Hx Diabetes Mellitus Type 1, Hx Diabetes Mellitus Type 2 Renal/ Medical History: Denies: Hx End Stage Renal Disease, Hx Kidney Stones, Hx Peritoneal Dialysis GI Medical History: Reports: Hx Gastroesophageal Reflux Disease. Denies: Hx Hiatal Hernia, Hx Ulcer Musculoskeletal Medical History: Denies Hx Arthritis Psychiatric Medical History: Denies: Hx Bipolar Disorder, Hx Depression, Hx Schizophrenia Traumatic Medical History: Reports: Hx Fractures - left arm/shoulder Past Surgical History: Reports: Hx Cardiac Catheterization, Hx Coronary Stent - X2, Hx Tonsillectomy. Denies: Hx Appendectomy, Hx Bowel Surgery, Hx Cholecystectomy - Immunizations Hx Diphtheria, Pertussis, Tetanus Vaccination: - <5 yrs Review of Systems - Review of Systems Constitutional: denies: Fever EENT: See HPI Cardiovascular: No symptoms reported Respiratory: See HPI Gastrointestinal: No symptoms reported Genitourinary: No symptoms reported Male Genitourinary: No symptoms reported Musculoskeletal: No symptoms reported Skin: No symptoms reported Hematologic/Lymphatic: No symptoms reported Neurological/Psychological: See HPI Physical Exam - Vital signs Vitals: Pulse Ox 89 L 05/23/19 04:35 - Notes Notes: GENERAL: Alert, interacts well. No acute distress. HEAD: Normocephalic, atraumatic. Right frontal sinus tenderness noted. EYES: Pupils equal, round, and reactive to light. Extraocular movements intact. No proptosis or erythema noted to bilateral eyes. No conjunctival injection noted bilaterally. ENT: Oral mucosa moist, tongue midline. Nares patent, TM's intact, noneryth ematous, nonbulging bilaterally. NECK: Full range of motion. Supple. Trachea midline. LUNGS: Clear to auscultation bilaterally, no wheezes, rales, or rhonchi. No respiratory distress. HEART: Regular rate and rhythm. No murmur ABDOMEN: Soft, non-tender. Non-distended. Bowel sounds present in all 4 qu adrants. EXTREMITIES: Moves all 4 extremities spontaneously. No edema, normal radial and dorsalis pedis pulses bilaterally. No cyanosis. BACK: no cervical, thoracic, lumbar midline tenderness. No saddle anesthesia, normal distal neurovascular exam. NEUROLOGICAL: Alert and oriented x3. Normal speech. cranial nerves II through XII grossly intact. PSYCH: Normal affect, normal mood. SKIN: Warm, dry, normal turgor. No rashes or lesions noted. Course - Re-evaluation Re-evalutation: Initial blood work was ordered by E provider based on nursing notes. Patient presents to the emergency department with a complaint consistent with sinusitis. Patient voices that he has had no nasal congestion typically has a dry cough from time to time. Patient also voices some pressure behind his right eye. Denying fever. I discussed this case with my attending Dr. Melgar. Based on patient's odd complaints with no URI symptoms and pressure behind his right eye he is suggesting CT imaging at this time. Also discussed using Yannick-Pen to rule out any increase in intraocular pressure. Yannick-Pen revealed a right ocular pressure of 15, done 3 times average. Also reveals a pressure of 16 left eye done 3 times with an average. 05/23/19 07:10 Upon reassessment of the patient after images results patient is sleeping, easily arousable with verbal stimuli. Patient's now voices he no longer has the pressure behind his right eye. Patient's denying any pressure in his right forehead or his right nostril as well. Patient's CT image does reveal sinusitis. Sinusitis is typically caused by viruses and now that the patient is complaint f ree will use [id number] treatments at this time. At this time will discharge with return precautions and follow-up recommendations. Verbal discharge instructions given a the bedside and opport unity for questions given. Medication warnings reviewed. Patient is in agreement with this plan and has verbalized understanding of return precautions and the need for primary care follow-up in the next 24-72 hours. This medical record was dictated with voice recognizing software. There may be grammatical, syntax errors that are unintended. 05/23/19 07:16 - Vital Signs Vital signs: Temp Pulse Resp BP Pulse Ox 89 L 05/23/19 04:35 - Laboratory Result Diagrams: 05/23/19 04:40 Laboratory results interpreted by me: 05/23/19 04:40 WBC 13.8 H MCH 26.7 L RDW 16.7 H Lymph % (Auto) 10.5 L Absolute Neuts (auto) 11.1 H Seg Neutrophils % 81.0 H Discharge - Discharge Clinical Impression: Sinusitis Qualifiers: Sinusitis location: frontal Chronicity: acute Recurrence: non-recurrent Qualified Code(s): J01.10 - Acute frontal sinusitis, unspecified Condition: Stable Disposition: HOME, SELF-CARE Instructions: Sinusitis ([facility]) Additional Instructions: As we discussed you have been seen and treated in the emergency department for sinusitis. This is typically caused by a virus and does not respond to antibiotics. Please make sure you are using nasal spray as prescribed. Please make sure you are taking [id number] Tylenol or Motrin for generalized pain. Please follow-up with your primary care provider in the next 24 to 48 hours. Please return to the emergency room for any further concerns. Prescriptions: Mometasone Furoate [Nasonex] 1 spray NS Q12 #1 spray.pump
[2019-05-23 07:23] VITALS: BP 137/86
--- NOTE | 2019-05-23 10:03 | EKG REPORT ---
SEVERITY:- ABNORMAL ECG - SINUS RHYTHM LA ABNORMALITY ANTERIOR IL, OLD. CONSIDER OLD INFERIOR IL : Confirmed by: Linus Zhang MD 23-May-2019 10:02:31
== END 2019-05-23 07:31 | disposition home or self-care (01) ==
LOC: ER 04:10
DX: J01.10 Acute frontal sinusitis, unspecified (principal); H57.11 Ocular pain, right eye; R51 Headache; F17.200 Nicotine dependence, unspecified, uncomplicated; I25.10 Atherosclerotic heart disease of native coronary artery without angina pectoris; I25.2 Old myocardial infarction; I10 Essential (primary) hypertension
CPT/HCPCS: 36415; 70450; 71045; 82553; 84484; 85025; 93005; 93010; 99284

== ENCOUNTER 2019-09-15 22:19 | Inpatient (IN) | payer OTHER ==
--- NOTE | 2019-09-15 22:47 | ER Document Report ---
ED Medical Screen (RME) - General Chief Complaint: Shortness Of Breath Stated Complaint: SHORNTESS OF BREATH Time Seen by Provider: 09/15/19 22:40 Notes: 59-year-old smoker with history of ACS in January 2019 and hypertension presents to the emergency department with shortness of breath. Patient states that he is getting worsening orthopnea and was compelled by a friend to come and get seen. Denies chest pain at this time, states that he thinks he has "fluid around my heart". No fevers or chills, no recent illness, no dyspnea on exertion. Exam: Well-appearing in no acute distress, mildly increased work of breathing, regular cardiac rate and rhythm with no murmur heard I have greeted and performed a rapid initial assessment of this patient. A comprehensive ED assessment and evaluation of the patient, analysis of test results and completion of medical decision making process will be conducted by an additional ED providers. TRAVEL OUTSIDE OF THE [place] IN LAST 30 DAYS: No - Related Data Allergies/Adverse Reactions: No Known Allergies Allergy (Verified 05/07/19 08:15) Past Medical History - Past Medical History Cardiac Medical History: Reports: Hx Coronary Artery Disease, Hx Heart Attack - january 2019, Hx Hypercholesterolemia, Hx Hypertension Denies: Hx Atrial Fibrillation, Hx Congestive Heart Failure Pulmonary Medical History: Denies: Hx Asthma, Hx Bronchitis, Hx COPD, Hx Pneumonia, Hx Tuberculosis Neurological Medical History: Denies: Hx Seizures, Hx Parkinson's Disease Endocrine Medical History: Denies: Hx Diabetes Mellitus Type 1, Hx Diabetes Mellitus Type 2 Renal/ Medical History: Denies: Hx End Stage Renal Disease, Hx Kidney Stones, Hx Peritoneal Dialysis GI Medical History: Reports: Hx Gastroesophageal Reflux Disease. Denies: Hx Hiatal Hernia, Hx Ulcer Musculoskeltal Medical History: Denies Hx Arthritis Psychiatric Medical History: Denies: Hx Bipolar Disorder, Hx Depression, Hx Schizophrenia Traumatic Medical History: Reports: Hx Fractures - left arm/shoulder Past Surgical History: Reports: Hx Cardiac Catheterization, Hx Coronary Stent - X2, Hx Tonsillectomy. Denies: Hx Appendectomy, Hx Bowel Surgery, Hx Cholecystectomy - Immunizations Hx Diphtheria, Pertussis, Tetanus Vaccination: - <5 yrs Physical Exam - Vital signs Vitals: Temp Pulse Resp BP Pulse Ox 98.2 F 87 22 H 158/103 H 97 09/15/19 22:25 09/15/19 22:25 09/15/19 22:25 09/15/19 22:25 09/15/19 22:25 Course - Vital Signs Vital signs: Temp Pulse Resp BP Pulse Ox 98.2 F 87 22 H 158/103 H 97 09/15/19 22:25 09/15/19 22:25 09/15/19 22:25 09/15/19 22:25 09/15/19 22:25
--- NOTE | 2019-09-15 23:31 | RADIOLOGY REPORT (SQ) ---
EXAM DESCRIPTION: XR CHEST 2 VIEWS COMPLETED DATE/TME: 09/15/2019 22:45 CLINICAL HISTORY: 59 years, Male, SOB COMPARISON: 05/23/2019 chest NUMBER OF VIEWS: 2 TECHNIQUE: 2 views of the chest LIMITATIONS: None. FINDINGS: Cardiomegaly with diffuse interstitial edema. Small bilateral effusions. No pneumothorax IMPRESSION: Cardiomegaly with pulmonary edema pattern as above copyright 2010 [employer]- All Rights Reserved
[2019-09-15 23:40] LABS: ABSOLUTE BASOPHILS # (AUTO) 0.1 10^3/uL (0.0-0.2); ABSOLUTE EOSINOPHILS # (AUTO) 0.2 10^3/uL (0.0-0.6); ABSOLUTE LYMPHOCYTES (AUTO) 2.6 10^3/uL (0.5-4.7); ABSOLUTE NEUT (AUTO) 7.2 10^3/uL (1.7-8.2); BASOPHILS % (AUTO) 0.9 % (0-2); EOSINOPHILS % (AUTO) 1.9 % (0-6); HEMATOCRIT 46.1 % (37.9-51.0); LYMPHOCYTES % (AUTO) 23.3 % (13-45); MEAN CORPUSCULAR HEMOGLOBIN 26.8 pg (27.0-33.4); MEAN CORPUSCULAR HGB CONC 32.5 g/dL (32.0-36.0); MEAN CORPUSCULAR VOLUME 82 fl (80-97); MONOCYTES % (AUTO) 9.1 % (3-13); PLATELET COUNT 279 10^3/uL (150-450); RED BLOOD COUNT 5.59 10^6/uL (4.35-5.55); SEGMENTED NEUTROPHILS % (AUTO) 64.8 % (42-78); TOTAL CELLS COUNTED % (AUTO) 100 %; WHITE BLOOD COUNT 11.1 10^3/uL (4.0-10.5)
[2019-09-15 23:51] LABS: ALBUMIN 3.8 g/dL (3.5-5.0); ALKALINE PHOSPHATASE 99 U/L (38-126); ANION GAP 10 (5-19); ASPARTATE AMINO TRANSFERASE 21 U/L (17-59); BILIRUBIN,DIRECT 0.2 mg/dL (0.0-0.4); BILIRUBIN,TOTAL 0.6 mg/dL (0.2-1.3); BLOOD UREA NITROGEN 29 mg/dL (7-20); CALCIUM 9.7 mg/dL (8.4-10.2); CARBON DIOXIDE 28 mmol/L (22-30); CHLORIDE 106 mmol/L (98-107); GLUCOSE 110 mg/dL (75-110); POTASSIUM 4.4 mmol/L (3.6-5.0)
[2019-09-16] MEDS ORDERED: FUROSEMIDE INJ/PF 20 MG/2 ML SDV IV ONE (03:52)
[2019-09-16] MEDS ORDERED: ASPIRIN 81 MG TABLET, CHEWABLE PO ONE (03:52)
--- NOTE | 2019-09-16 03:57 | ER Document Report ---
ED General - General Chief Complaint: Shortness Of Breath Stated Complaint: SHORNTESS OF BREATH Time Seen by Provider: 09/15/19 22:40 Primary Care Provider: [facility] [Primary Care Provider] - Follow up as needed TRAVEL OUTSIDE OF THE [place] IN LAST 30 DAYS: No - HPI Notes: This is a 59-year-old gentleman who presents with a complaint of progressively worsening exertional dyspnea. Patient states has had trouble breathing ever since March when he had a heart attack. However, symptoms have gotten progressively worse over the past few days. He describes exertional dyspnea. He denies any fever or chills. He denies any chest pain. Describes symptoms as moderate. Has a history of ACS and CHF. He states he has been compliant with his medication. - Related Data Allergies/Adverse Reactions: No Known Allergies Allergy (Verified 05/07/19 08:15) Past Medical History - Social History Smoking Status: Current Some Day Smoker Family History: Reviewed & Not Pertinent Patient has suicidal ideation: No Patient has homicidal ideation: No - Past Medical History Cardiac Medical History: Reports: Hx Coronary Artery Disease, Hx Heart Attack - january 2019, Hx Hypercholesterolemia, Hx Hypertension Denies: Hx Atrial Fibrillation, Hx Congestive Heart Failure Pulmonary Medical History: Denies: Hx Asthma, Hx Bronchitis, Hx COPD, Hx Pneumonia, Hx Tuberculosis Neurological Medical History: Denies: Hx Seizures, Hx Parkinson's Disease Endocrine Medical History: Denies: Hx Diabetes Mellitus Type 1, Hx Diabetes Mellitus Type 2 Renal/ Medical History: Denies: Hx End Stage Renal Disease, Hx Kidney Stones, Hx Peritoneal Dialysis GI Medical History: Reports: Hx Gastroesophageal Reflux Disease. Denies: Hx Hiatal Hernia, Hx Ulcer Musculoskeletal Medical History: Denies Hx Arthritis Psychiatric Medical History: Denies: Hx Bipolar Disorder, Hx Depression, Hx Schizophrenia Traumatic Medical History: Reports: Hx Fractures - left arm/shoulder Past Surgical History: Reports: Hx Cardiac Catheterization, Hx Coronary Stent - X2, Hx Tonsillectomy. Denies: Hx Appendectomy, Hx Bowel Surgery, Hx Cholecystectomy - Immunizations Hx Diphtheria, Pertussis, Tetanus Vaccination: - <5 yrs Review of Systems - Review of Systems Cardiovascular: Edema. denies: Chest pain Respiratory: Short of breath. denies: Cough, Hurts to breathe -: Yes All other systems reviewed and negative Physical Exam - Vital signs Vitals: Temp Pulse Resp BP Pulse Ox 98.2 F 87 22 H 158/103 H 97 09/15/19 22:25 09/15/19 22:25 09/15/19 22:25 09/15/19 22:25 09/15/19 22:25 - General In distress: Mild - Respiratory Respiratory status: Respiratory distress Chest status: Accessory muscle use Breath sounds: Rales. No: Wheezing - Cardiovascular Rhythm: Regular Heart sounds: Normal auscultation Murmur: No - Abdominal Inspection: Normal Distension: No distension Bowel sounds: Normal Tenderness: Nontender Organomegaly: No organomegaly - Extremities General lower extremity: Edema - Bilateral lower extremity edema. - Neurological Neuro grossly intact: Yes Cognition: Normal Orientation: AAOx4 [place] Coma Scale Eye Opening: Spontaneous [place]illian Coma Scale Verbal: Oriented [place] Coma Scale Motor: Obeys Commands Lillian Coma Scale Total: 15 Speech: Normal Motor strength normal: LUE, RUE, LLE, RLE Sensory: Normal Course - Re-evaluation Re-evalutation: 09/16/19 03:56 Differential diagnosis includes pneumonia versus CHF exacerbation. EKG shows normal sinus rhythm at 70 bpm. Normal axis. No acute injury pattern. [id number] Chest x-ray is consistent with pulmonary edema. Patient is tachypneic and dyspneic. Will need to be admitted. 09/16/19 04:08 Patient's care discussed with Dr. Zuleta. Will admit. - Vital Signs Vital signs: Temp Pulse Resp BP Pulse Ox 98.2 F 75 27 H 147/113 H 98 09/16/19 03:21 09/16/19 03:21 09/16/19 03:40 09/16/19 03:40 09/16/19 03:40 - Laboratory Result Diagrams: 09/15/19 23:22 09/15/19 23:22 Laboratory results interpreted by me: 09/15/19 09/15/19 23:22 23:22 WBC 11.1 H RBC 5.59 H MCH 26.8 L RDW 19.0 H BUN 29 H Creatinine 2.16 H Est GFR ( Amer) 38 L Est GFR (MDRD) Non-Af 31 L Discharge - Discharge Clinical Impression: Acute CHF (congestive heart failure) Qualifiers: Heart failure type: unspecified Qualified Code(s): I50.9 - Heart failure, unspecified Pulmonary edema Qualifiers: Chronicity: acute Qualified Code(s): J81.0 - Acute pulmonary edema Condition: Fair Disposition: ADMITTED INPATIENT Admitting Provider: Song (Hospitalist) Unit Admitted: Telemetry Referrals: [facility] [Primary Care Provider] - Follow up as needed
[2019-09-16] MEDS ORDERED: ACETAMINOPHEN 325 MG TABLET PO PRN (05:18)
[2019-09-16] MEDS ORDERED: MORPHINE SULFATE 10 MG/ML INJ IV PRN (05:18)
[2019-09-16] MEDS: HEPARIN SOD (PORCINE) 5,000 UNIT/ML 1 ML VIAL SUBCUT SCH ×3 (06:03→22:06)
[2019-09-16] MEDS: BUMETANIDE INJ/PF 1 MG/4 ML SDV IV SCH ×4 (06:04→23:11)
--- NOTE | 2019-09-16 06:41 | PDOC H&P ---
History of Present Illness Admission Date/PCP: 09/16/19 04:22 [facility] Patient complains of: Dyspnea History of Present Illness: MECHE DANIELS is a 59 year old male who presented emergency room with a six- month history of dyspnea. He admits his dyspnea began after his myocardial infarction in January of this year and has persisted as mild dyspnea worsened by exertion since that time. Over the last 3 days his dyspnea has become moderate and late on Harriet Altagracia his dyspnea became severe causing him to come to the hospital. His dyspnea has been accompanied by progressively worsening orthopnea and is markedly worsened by exertion. He denies other associated or accompanying signs and symptoms. He admits prior similar episodes related to his congestive heart failure. He has not identified any additional aggravating or ameliorating factors for his dyspnea. In the emergency room he was found to have acute respiratory failure with acute pulmonary edema. He was subsequently admitted to the hospital for further evaluation and treatment. Past Medical History Cardiac Medical History: Reports: Congestive Heart Failure, Coronary Artery Disease, Myocardial Infarction - january 2019, Hyperlipidema, Hypertension Denies: Atrial Fibrillation Pulmonary Medical History: Denies: Asthma, Bronchitis, Chronic Obstructive Pulmonary Disease (COPD), Pneumonia, Tuberculosis EENT Medical History: Denies: Cataracts, Ears - Hearing aids Neurological Medical History: Denies: Hemorrhagic CVA, Ischemic CVA, Seizures Endocrine Medical History: Reports: Obesity Denies: Diabetes Mellitus Type 1, Diabetes Mellitus Type 2, Hyperthyroidism, Hypothyroidism Renal/ Medical History: Reports: Chronic Kidney Disease Denies: Nephrolithiasis Malignancy Medical History: Reports: None GI Medical History: Reports: Gastroesophageal Reflux Disease Denies: Cirrhosis, Crohn's Disease, Hepatitis, Hiatal Hernia, Ulcerative Colitis Musculoskeltal Medical History: Denies: Arthritis, Gout Skin Medical History: Denies: Eczema, Psoriasis Psychiatric Medical History: Reports: Tobacco Dependency Denies: Alcohol Dependency, Bipolar Disorder, Depression, Substance Abuse Traumatic Medical History: Reports: None Hematology: Denies: Anemia, Bleeding Tendencies Infectious Medical History: Reports: None Past Surgical History Past Surgical History: Reports: Cardiac Catheterization, Coronary Stent - X2, Tonsillectomy Social History Information Source: Patient Lives with: Friend Smoking Status: Current Some Day Smoker Electronic Cigarette use?: No Frequency of Alcohol Use: None Hx Recreational Drug Use: No Drugs: None Hx Prescription Drug Abuse: No - Advance Directive Resuscitation Status: Full Code Surrogate healthcare decision maker:: Dorota Daniels Family History Family History: CAD, Hypertension. denies: DM, Malignancy Parental Family History Reviewed: Yes Children Family History Reviewed: No Sibling(s) Family History Reviewed.: Yes Medication/Allergy Home Medications: Aspirin [Adult Low Dose Aspirin EC] 81 mg PO DAILY 05/07/19 Atorvastatin Calcium [Lipitor 40 mg Tablet] 40 mg PO DAILY 05/07/19 Clopidogrel Bisulfate [Plavix 75 mg Tablet] 75 mg PO DAILY 05/07/19 Lisinopril [Zestril] 20 mg PO DAILY 05/07/19 Tamsulosin HCl [Flomax] 0.4 mg PO DAILY 05/07/19 Acetaminophen [Tylenol 325 mg Tablet] 650 mg PO Q4HP PRN tablet 05/09/19 Furosemide [Lasix 40 mg Tablet] 60 mg PO DAILY #30 tablet 05/09/19 Metoprolol Tartrate [Lopressor 25 mg Tablet] 12.5 mg PO Q12 #30 tablet 05/09/19 Mometasone Furoate [Nasonex] 1 spray NS Q12 #1 spray.pump 05/23/19 Allergies/Adverse Reactions: No Known Allergies Allergy (Verified 05/07/19 08:15) Review of Systems Constitutional: ABSENT: chills, fever(s) Eyes: ABSENT: visual disturbances, other - Eye pain Ears: ABSENT: hearing changes, other - Ear pain Nose, Mouth, and Throat: ABSENT: headache(s), mouth pain, sore throat Cardiovascular: PRESENT: dyspnea on exertion, orthropnea. ABSENT: chest pain, edema, palpitations Respiratory: PRESENT: dyspnea. ABSENT: cough Gastrointestinal: ABSENT: abdominal pain, constipation, diarrhea, nausea, vomiting Musculoskeletal: ABSENT: back pain, joint swelling, muscle weakness Integumentary: ABSENT: pruritus, rash Neurological: ABSENT: confusion, convulsions, focal weakness, memory loss, syncope Psychiatric: ABSENT: anxiety, depression Endocrine: ABSENT: cold intolerance, heat intolerance Hematologic/Lymphatic: ABSENT: easy bleeding, easy bruising Allergic/Immunologic: ABSENT: seasonal rhinorrhea Physical Exam Vital Signs: Temp Pulse Resp BP Pulse Ox 98.2 F 75 27 H 147/113 H 98 09/16/19 03:21 09/16/19 03:21 09/16/19 03:40 09/16/19 03:40 09/16/19 03:40 Intake & Output 09/14/19 09/15/19 09/16/19 23:59 23:59 23:59 Weight 108.8 kg General appearance: PRESENT: no acute distress, cooperative, other - On supplem ental oxygen Head exam: PRESENT: atraumatic, normocephalic Eye exam: PRESENT: conjunctiva pink. ABSENT: conjunctival injection, scleral icterus Ear exam: PRESENT: normal external ear exam. ABSENT: bleeding, drainage Mouth exam: PRESENT: dry mucosa, neck supple Neck exam: ABSENT: thyromegaly, tracheal deviation Respiratory exam: PRESENT: rales - Bibasilar rales, symmetrical Cardiovascular exam: PRESENT: gallop - S4 gallop, RRR. ABSENT: clicks, rubs Pulses: PRESENT: normal radial pulses, normal dorsalis pedis pul Vascular exam: PRESENT: normal capillary refill. ABSENT: pallor GI/Abdominal exam: PRESENT: normal bowel sounds, soft Rectal exam: PRESENT: deferred Extremities exam: PRESENT: pedal edema - Bilateral, +1 edema - Pretibial pitting edema bilaterally. ABSENT: joint swelling Musculoskeletal exam: ABSENT: deformity, dislocation Neurological exam: PRESENT: alert, oriented to person, oriented to place, oriented to time, oriented to situation, CN II-XII grossly intact. ABSENT: motor sensory deficit Psychiatric exam: PRESENT: appropriate affect, normal mood Skin exam: PRESENT: dry, intact, warm. ABSENT: jaundice, rash, urticaria Results Laboratory Results: 09/15/19 23:22 09/15/19 23:22 09/15/19 09/15/19 23:22 23:22 WBC 11.1 H RBC 5.59 H Hgb 15.0 Hct 46.1 MCV 82 MCH 26.8 L MCHC 32.5 RDW 19.0 H Plt Count 279 Seg Neutrophils % 64.8 Sodium 144.0 Potassium 4.4 Chloride 106 Carbon Dioxide 28 Anion Gap 10 BUN 29 H Creatinine 2.16 H Est GFR ( Amer) 38 L Glucose 110 Calcium 9.7 Total Bilirubin 0.6 AST 21 Alkaline Phosphatase 99 Total Protein 7.0 Albumin 3.8 09/15/19 09/15/19 23:22 23:22 Troponin I 0.035 NT-Pro-B Natriuret Pep 5200 H Impressions: Chest X-Ray 09/15/19 22:45 IMPRESSION: Cardiomegaly with pulmonary edema pattern as above copyright 2011 [employer]- All Rights Reserved Assessment and Plan - Diagnosis (1) Pulmonary edema Qualifiers: Chronicity: acute Qualified Code(s): J81.0 - Acute pulmonary edema Is this a current diagnosis for this admission?: Yes (2) Acute on chronic diastolic congestive heart failure Is this a current diagnosis for this admission?: Yes (3) Chronic renal insufficiency, stage III (moderate) Is this a current diagnosis for this admission?: Yes (4) Coronary artery disease Qualifiers: Coronary Disease-Associated Artery/Lesion type: [place] artery [place] vs. transplanted heart: [place] heart Associated angina: without angina Qualified Code(s): I25.10 - Atherosclerotic heart disease of [place] coronary artery without angina pectoris Is this a current diagnosis for this admission?: Yes (5) Hypertension Qualifiers: Hypertension type: essential hypertension Qualified Code(s): I10 - Essential (primary) hypertension Is this a current diagnosis for this admission?: Yes (6) Tobacco abuse disorder Is this a current diagnosis for this admission?: Yes - Plan Summary Summary: Patient will be admitted to the medical floor where he will receive routine supportive and symptomatic cares. He will receive IV Bumex every 6 hours and will receive respiratory support with oxygen supplementation as required to maintain adequate oxygen saturation. Morphine sulfate will be used as needed for acute exacerbations of dyspnea related to his acute pulmonary edema in the dose of 2 mg IV every hour as needed. CBCs, metabolic profiles and magnesium levels will be obtained as appropriate for management. Patient will be started on his usual medications with appropriate adjustments as soon as his medication reconciliation has been completed. - Time Time Spent with patient: 15-24 minutes Medications reviewed and adjusted accordingly: Yes Anticipated discharge: Home with Homehealth - Inpatient Certification Based on my medical assessment, after consideration of the patient's comorbidities, presenting symptoms, or acuity I expect that the services needed warrant INPATIENT care.: Yes I certify that my determination is in accordance with my understanding of Medicare's requirements for reasonable and necessary INPATIENT services [42 CFR 412.3e].: Yes Medical Necessity: Need Close Monitoring Due to Risk of Patient Decompensation, Need For Continuous Telemetry Monitoring, Risk of Complication if Not Cared For in Hospital
[2019-09-16] MEDS ORDERED: HYDRALAZINE HCL INJ/PF 20 MG/1 ML SDV IV PRN (06:42)
[2019-09-16] MEDS ORDERED: METOPROLOL TARTRATE PF/INJ 5 MG/5 ML SDV IV PRN (06:42)
--- NOTE | 2019-09-16 08:38 | Progress Note ---
Provider Note Provider Note: 09/16/2019-patient admitted early a.m. I have evaluated patient laboratory diagnostics. We will continue to follow make change plan of care as warranted by patient's condition
--- NOTE | 2019-09-16 20:11 | EKG REPORT ---
SEVERITY:- ABNORMAL ECG - SINUS RHYTHM LEFT ATRIAL ABNORMALITY INFERIOR INFARCT, OLD ANTEROLATERAL INFARCT,/ AGE : Confirmed by: Verona Mack MD 16-Sep-2019 20:10:23
[2019-09-17 05:31] LABS: ABSOLUTE BASOPHILS # (AUTO) 0.1 10^3/uL (0.0-0.2); ABSOLUTE EOSINOPHILS # (AUTO) 0.3 10^3/uL (0.0-0.6); ABSOLUTE LYMPHOCYTES (AUTO) 2.5 10^3/uL (0.5-4.7); ABSOLUTE MONOCYTES (AUTO) 0.7 10^3/uL (0.1-1.4); ABSOLUTE NEUT (AUTO) 5.8 10^3/uL (1.7-8.2); EOSINOPHILS % (AUTO) 3.2 % (0-6); HEMATOCRIT 43.6 % (37.9-51.0); HEMOGLOBIN 14.8 g/dL (13.5-17.0); LYMPHOCYTES % (AUTO) 26.4 % (13-45); MEAN CORPUSCULAR HEMOGLOBIN 27.5 pg (27.0-33.4); MEAN CORPUSCULAR HGB CONC 33.9 g/dL (32.0-36.0); MEAN CORPUSCULAR VOLUME 81 fl (80-97); MONOCYTES % (AUTO) 7.5 % (3-13); PLATELET COUNT 272 10^3/uL (150-450); RED BLOOD COUNT 5.38 10^6/uL (4.35-5.55); RED CELL DISTRIBUTION WIDTH 18.6 % (11.5-14.0); SEGMENTED NEUTROPHILS % (AUTO) 61.9 % (42-78); TOTAL CELLS COUNTED % (AUTO) 100 %; WHITE BLOOD COUNT 9.3 10^3/uL (4.0-10.5)
[2019-09-17 05:53] LABS: ANION GAP 10 (5-19); BLOOD UREA NITROGEN 29 mg/dL (7-20); CALCIUM 8.7 mg/dL (8.4-10.2); CARBON DIOXIDE 26 mmol/L (22-30); CHLORIDE 105 mmol/L (98-107); GLUCOSE 181 mg/dL (75-110); POTASSIUM 3.9 mmol/L (3.6-5.0)
[2019-09-17] MEDS: HEPARIN SOD (PORCINE) 5,000 UNIT/ML 1 ML VIAL SUBCUT SCH (06:07)
[2019-09-17] MEDS: BUMETANIDE INJ/PF 1 MG/4 ML SDV IV SCH (06:07)
--- NOTE | 2019-09-17 08:31 | PDOC DISCHARGE SUMMARY ---
Impression - Admit/DC Date/PCP Admission Date/Primary Care Provider: 09/16/19 04:22 [facility] Discharge Date: 09/17/19 - Discharge Diagnosis (1) Acute on chronic diastolic congestive heart failure Is this a current diagnosis for this admission?: Yes (2) Chronic renal insufficiency, stage III (moderate) Is this a current diagnosis for this admission?: Yes (3) Pulmonary edema Is this a current diagnosis for this admission?: Yes (4) Coronary artery disease Is this a current diagnosis for this admission?: Yes (5) Hypertension Is this a current diagnosis for this admission?: Yes (6) Tobacco abuse disorder Is this a current diagnosis for this admission?: Yes - Assessment Summary: Patient will be admitted to the medical floor where he will receive routine supportive and symptomatic cares. He will receive IV Bumex every 6 hours and will receive respiratory support with oxygen supplementation as required to maintain adequate oxygen saturation. Morphine sulfate will be used as needed for acute exacerbations of dyspnea related to his acute pulmonary edema in the dose of 2 mg IV every hour as needed. CBCs, metabolic profiles and magnesium levels will be obtained as appropriate for management. Patient will be started on his usual medications with appropriate adjustments as soon as his medication reconciliation has been completed. - Additional Information Resuscitation Status: Full Code Discharge Diet: As Tolerated Discharge Activity: Activity As Tolerated Referrals: [facility] [Primary Care Provider] - Follow up as needed (Clinic is closed until Sep 28. Someone will call you with a appointment.) Home Medications: Aspirin [Adult Low Dose Aspirin EC] 81 mg PO DAILY 09/16/19 Atorvastatin Calcium [Lipitor 40 mg Tablet] 40 mg PO QHS 09/16/19 Clopidogrel Bisulfate [Plavix 75 mg Tablet] 75 mg PO DAILY 09/16/19 Furosemide [Lasix 40 mg Tablet] 60 mg PO DAILY 09/16/19 Lisinopril [Zestril] 20 mg PO DAILY 09/16/19 Metoprolol Succinate [Toprol Xl 50 mg Tab.sr] 50 mg PO DAILY 09/16/19 History of Present Illiness History of Present Illness: MECHE MEJÍA is a 59 year old male who presented to the ER with dyspnea Hospital Course Hospital Course: Patient presented to the ER with dyspnea that I progress worse over last 6 months. Patient admits his dyspnea began after a myocardial infarction in January of this year has persisted as mild dyspnea worsened by exertion since that time. Patient states that over the last 3 days prior to arrival in the ER he is dyspnea had worsened and got to the point on [place] causing him to report to the hospital. Patient states that his shortness of breath was progressive worsened and worsening orthopnea and markedly and worsened by exertion at that time. He denied any other signs or symptoms. Patient was admitted to [facility] and aggressively diuresed with IV Bumex. As of today patient has shown great improvement and can return home with follow-up with his primary care within 1 week. Patient will continue all home medications as prior no new prescriptions are given. I would also recommend close follow-up with cardiology. Physical Exam Vital Signs: Temp Pulse Resp BP Pulse Ox 97.4 F 68 18 140/92 H 95 09/17/19 08:24 09/17/19 08:24 09/17/19 08:24 09/17/19 08:24 09/17/19 08:24 Intake & Output 09/16/19 09/17/19 09/18/19 06:59 06:59 06:59 Intake Total 1250 Output Total 650 Balance -650 1250 Weight 107.7 kg 108.4 kg General appearance: PRESENT: no acute distress, well-developed, well-nourished Head exam: PRESENT: atraumatic, normocephalic Eye exam: PRESENT: conjunctiva pink, EOMI, PERRLA. ABSENT: scleral icterus Ear exam: PRESENT: normal external ear exam Mouth exam: PRESENT: moist, tongue midline Neck exam: ABSENT: carotid bruit, JVD, lymphadenopathy, thyromegaly Respiratory exam: PRESENT: clear to auscultation ivan. ABSENT: rales, rhonchi, wheezes Cardiovascular exam: PRESENT: RRR. ABSENT: diastolic murmur, rubs, systolic murmur Pulses: PRESENT: normal dorsalis pedis pul Vascular exam: PRESENT: normal capillary refill GI/Abdominal exam: PRESENT: normal bowel sounds, soft. ABSENT: distended, guarding, mass, organolmegaly, rebound, tenderness Rectal exam: PRESENT: deferred Extremities exam: PRESENT: full ROM. ABSENT: calf tenderness, clubbing, pedal edema Neurological exam: PRESENT: alert, awake, oriented to person, oriented to place, oriented to time, oriented to situation, CN II-XII grossly intact. ABSENT: motor sensory deficit Psychiatric exam: PRESENT: appropriate affect, normal mood. ABSENT: homicidal ideation, suicidal ideation Skin exam: PRESENT: dry, intact, warm. ABSENT: cyanosis, rash Results Laboratory Results: WBC 9.3 10^3/uL (4.0-10.5) 09/17/19 04:36 RBC 5.38 10^6/uL (4.35-5.55) 09/17/19 04:36 Hgb 14.8 g/dL (13.5-17.0) 09/17/19 04:36 Hct 43.6 % (37.9-51.0) 09/17/19 04:36 MCV 81 fl (80-97) 09/17/19 04:36 MCH 27.5 pg (27.0-33.4) 09/17/19 04:36 MCHC 33.9 g/dL (32.0-36.0) 09/17/19 04:36 RDW 18.6 % (11.5-14.0) H 09/17/19 04:36 Plt Count 272 10^3/uL (150-450) 09/17/19 04:36 Lymph % (Auto) 26.4 % (13-45) 09/17/19 04:36 Campbell % (Auto) 7.5 % (3-13) 09/17/19 04:36 Eos % (Auto) 3.2 % (0-6) 09/17/19 04:36 Baso % (Auto) 1.0 % (0-2) 09/17/19 04:36 Absolute Neuts (auto) 5.8 10^3/uL (1.7-8.2) 09/17/19 04:36 Absolute Lymphs (auto) 2.5 10^3/uL (0.5-4.7) 09/17/19 04:36 Absolute Monos (auto) 0.7 10^3/uL (0.1-1.4) 09/17/19 04:36 Absolute Eos (auto) 0.3 10^3/uL (0.0-0.6) 09/17/19 04:36 Absolute Basos (auto) 0.1 10^3/uL (0.0-0.2) 09/17/19 04:36 Seg Neutrophils % 61.9 % (42-78) 09/17/19 04:36 Sodium 141.4 mmol/L (137-145) 09/17/19 04:36 Potassium 3.9 mmol/L (3.6-5.0) 09/17/19 04:36 Chloride 105 mmol/L (98-107) 09/17/19 04:36 Carbon Dioxide 26 mmol/L (22-30) 09/17/19 04:36 Anion Gap 10 (5-19) 09/17/19 04:36 BUN 29 mg/dL (7-20) H 09/17/19 04:36 Creatinine 2.06 mg/dL (0.52-1.25) H 09/17/19 04:36 Est GFR ( Amer) 40 (>60) L 09/17/19 04:36 Est GFR (MDRD) Non-Af 33 (>60) L 09/17/19 04:36 Glucose 181 mg/dL (75-110) H 09/17/19 04:36 Calcium 8.7 mg/dL (8.4-10.2) 09/17/19 04:36 Magnesium 2.1 mg/dL (1.6-2.3) 09/17/19 04:36 Total Bilirubin 0.6 mg/dL (0.2-1.3) 09/15/19 23:22 Direct Bilirubin 0.2 mg/dL (0.0-0.4) 09/15/19 23:22 Neonat Total Bilirubin Not Reportable 09/15/19 23:22 Neonat Direct Bilirubin Not Reportable 09/15/19 23:22 Neonat Indirect Bili Not Reportable 09/15/19 23:22 AST 21 U/L (17-59) 09/15/19 23:22 ALT 23 U/L (<50) 09/15/19 23:22 Alkaline Phosphatase 99 U/L (38-126) 09/15/19 23:22 Troponin I 0.035 ng/mL 09/15/19 23:22 NT-Pro-B Natriuret Pep 5200 pg/mL (<125) H 09/15/19 23:22 Total Protein 7.0 g/dL (6.3-8.2) 09/15/19 23:22 Albumin 3.8 g/dL (3.5-5.0) 09/15/19 23:22 09/15/19 09/15/19 23:22 23:22 Troponin I 0.035 NT-Pro-B Natriuret Pep 5200 H Impressions: Chest X-Ray 09/15/19 22:45 IMPRESSION: Cardiomegaly with pulmonary edema pattern as above copyright 2011 [employer]- All Rights Reserved Plan Time Spent: Greater than 30 Minutes Stroke Is this a Stroke Patient?: No Acute Heart Failure - Is this a Heart Failure Patient?: Yes Documentation of LVEF assessment?: No, Document reason - No recent echocardio gram in house LVEF < 40%?: No- if no continue to question #3 3. Anticoagulant therapy for permanect/persistent/paraoxysmal Afib or Aflutter: N/A Follow-up Appointment scheduled within 7 days?: Yes
[2019-09-17 08:33] VITALS: BP 144/100
== END 2019-09-17 09:04 | disposition home or self-care (01) | DRG 291 ==
LOC: ER 22:19 → EH 09-16 04:22 → 3N 09-16 06:20
PROVIDERS: ADMIT Emergency Medicine; ATTEND Emergency Medicine
DX: I13.0 Hypertensive heart and chronic kidney disease with heart failure and stage 1 through stage 4 chronic kidney disease, or unspecified chronic kidney disease (principal); I50.33 Acute on chronic diastolic (congestive) heart failure; J81.0 Acute pulmonary edema; N18.3 Chronic kidney disease, stage 3 (moderate); I25.10 Atherosclerotic heart disease of native coronary artery without angina pectoris; E78.5 Hyperlipidemia, unspecified; E66.9 Obesity, unspecified; K21.9 Gastro-esophageal reflux disease without esophagitis; F17.210 Nicotine dependence, cigarettes, uncomplicated; E78.00 Pure hypercholesterolemia, unspecified; I25.2 Old myocardial infarction; Z79.899 Other long term (current) drug therapy; Z79.82 Long term (current) use of aspirin; Z95.5 Presence of coronary angioplasty implant and graft
CPT/HCPCS: 36415; 71046; 80048; 80053; 83735; 83880; 84484; 85025; 93005; 93010; 99285; J1644; J1940; J3490

== ENCOUNTER 2020-04-09 22:08 | Inpatient (IN) | payer SELFPAY ==
--- NOTE | 2020-04-09 22:48 | ER Document Report ---
ED Medical Screen (RME) - General Chief Complaint: Vision Problem Stated Complaint: EYE SITE ISSUES/BLOOD PRESSURE ISSUES Time Seen by Provider: 04/09/20 22:32 Primary Care Provider: GÓMEZ MEDINA,JESSICA [Primary Care Provider] - Follow up as needed Mode of Arrival: Ambulatory Information source: Patient Notes: 60-year-old male patient presenting to the emergency department concern for visual changes to the left eye. Patient reports approximately 1 week ago he started losing vision in his left eye. He states his vision is now very blurry. He called to make an ophthalmology appointment but they cannot see him until Saturday. Patient denies any headaches, chest pain, shortness of breath. He denies any neurological deficits or weakness. He does report bilateral shoulder aching. He thinks this is because he works outside in the sun may be dehydrated. Patient is alert, oriented, no acute distress noted. No focal neurological deficits noted. I have greeted and performed a rapid initial assessment of this patient. A comprehensive ED assessment and evaluation of the patient, analysis of test results and completion of the medical decision making process will be conducted by additional ED providers. I have specifically instructed the patient or family members with the patient to immediately return to any nursing staff should anything change in the patient's condition or with their chief complaint. TRAVEL OUTSIDE OF THE [place] IN LAST 30 DAYS: No - Related Data Allergies/Adverse Reactions: No Known Allergies Allergy (Verified 04/09/20 22:32) Past Medical History - Social History Frequency of alcohol use: None Drug Abuse: None - Past Medical History Cardiac Medical History: Reports: Hx Congestive Heart Failure, Hx Coronary Artery Disease, Hx Heart Attack - january 2019, Hx Hypercholesterolemia, Hx Hypertension Denies: Hx Atrial Fibrillation Pulmonary Medical History: Denies: Hx Asthma, Hx Bronchitis, Hx COPD, Hx Pneumonia, Hx Tuberculosis Neurological Medical History: Denies: Hx Seizures, Hx Parkinson's Disease Endocrine Medical History: Denies: Hx Diabetes Mellitus Type 1, Hx Diabetes Mellitus Type 2, Hx Hyperthyroidism, Hx Hypothyroidism Renal/ Medical History: Denies: Hx End Stage Renal Disease, Hx Kidney Stones, Hx Peritoneal Dialysis GI Medical History: Reports: Hx Gastroesophageal Reflux Disease. Denies: Hx Cirrhosis, Hx Crohn's Disease, Hx Hepatitis, Hx Hiatal Hernia, Hx Ulcer, Hx Ulcerative Colitis Musculoskeltal Medical History: Denies Hx Arthritis, Denies Hx Gout Skin Medical History: Denies Hx Eczema, Denies Hx Psoriasis Psychiatric Medical History: Denies: Hx Bipolar Disorder, Hx Depression, Hx Schizophrenia Traumatic Medical History: Reports: Hx Fractures - left arm/shoulder Infectious Medical History: Denies: Hx Hepatitis Past Surgical History: Reports: Hx Cardiac Catheterization, Hx Coronary Stent - X2, Hx Tonsillectomy. Denies: Hx Appendectomy, Hx Bowel Surgery, Hx Cholecystectomy - Immunizations Hx Diphtheria, Pertussis, Tetanus Vaccination: - <5 yrs Physical Exam - Vital signs Vitals: Temp Pulse Resp BP Pulse Ox 97.7 F 97 16 108/78 100 04/09/20 22:15 04/09/20 22:15 04/09/20 22:15 04/09/20 22:15 04/09/20 22:15 Course - Vital Signs Vital signs: Temp Pulse Resp BP Pulse Ox 97.7 F 97 16 108/78 100 04/09/20 22:36 04/09/20 22:15 04/09/20 22:15 04/09/20 22:15 04/09/20 22:15 Doctor's Discharge - Discharge Referrals: [facility] [Primary Care Provider] - Follow up as needed
[2020-04-09 22:58] LABS: ABSOLUTE BASOPHILS # (AUTO) 0.1 10^3/uL (0.0-0.2); ABSOLUTE EOSINOPHILS # (AUTO) 0.1 10^3/uL (0.0-0.6); ABSOLUTE LYMPHOCYTES (AUTO) 2.1 10^3/uL (0.5-4.7); ABSOLUTE MONOCYTES (AUTO) 0.7 10^3/uL (0.1-1.4); BASOPHILS % (AUTO) 1.1 % (0-2); EOSINOPHILS % (AUTO) 1.5 % (0-6); HEMATOCRIT 50.3 % (37.9-51.0); HEMOGLOBIN 17.3 g/dL (13.5-17.0); LYMPHOCYTES % (AUTO) 26.1 % (13-45); MEAN CORPUSCULAR HEMOGLOBIN 28.9 pg (27.0-33.4); MEAN CORPUSCULAR HGB CONC 34.3 g/dL (32.0-36.0); MEAN CORPUSCULAR VOLUME 84 fl (80-97); MONOCYTES % (AUTO) 9.2 % (3-13); PLATELET COUNT 243 10^3/uL (150-450); RED BLOOD COUNT 5.97 10^6/uL (4.35-5.55); RED CELL DISTRIBUTION WIDTH 19.8 % (11.5-14.0); SEGMENTED NEUTROPHILS % (AUTO) 62.1 % (42-78); TOTAL CELLS COUNTED % (AUTO) 100 %
[2020-04-09 23:09] LABS: INTERNATIONAL RATION (INR) 0.95; PROTHROMBIN TIME 12.7 SEC (11.4-15.4)
[2020-04-09 23:10] LABS: PARTIAL THROMBOPLASTIN TIME 24.8 SEC (23.5-35.8)
[2020-04-09 23:17] LABS: ALBUMIN 4.5 g/dL (3.5-5.0); ALKALINE PHOSPHATASE 131 U/L (38-126); ANION GAP 15 (5-19); ASPARTATE AMINO TRANSFERASE 20 U/L (17-59); BILIRUBIN,TOTAL 0.8 mg/dL (0.2-1.3); BLOOD UREA NITROGEN 56 mg/dL (7-20); CALCIUM 10.1 mg/dL (8.4-10.2); CARBON DIOXIDE 22 mmol/L (22-30); CHLORIDE 85 mmol/L (98-107); POTASSIUM 5.5 mmol/L (3.6-5.0); TOTAL PROTEIN 7.9 g/dL (6.3-8.2)
[2020-04-09 23:32] LABS: GLUCOSE 843 mg/dL (75-110)
[2020-04-10] MEDS ORDERED: INSULIN REG, HUMAN 100 UNIT/ML 3 ML VIAL (PYX) IV ONE (00:10)
--- NOTE | 2020-04-10 00:14 | ER Document Report ---
ED General - General Chief Complaint: Vision Problem Stated Complaint: EYE SITE ISSUES/BLOOD PRESSURE ISSUES Time Seen by Provider: 04/09/20 22:32 Primary Care Provider: [facility] [Primary Care Provider] - Follow up as needed Mode of Arrival: Ambulatory TRAVEL OUTSIDE OF THE [place] IN LAST 30 DAYS: No - HPI Notes: Patient is a 60-year-old who presents to the emergency department for evaluation of difficulty seeing. He already has lost vision in his right eye in the past. He states he has had blurred vision in his left eye over the last month. He has an appointment with an wafer mounter, but states that seems to be getting worse, and he could not take it any longer, so he presents to the ED for further evaluation. He has some mild pain in his bilateral shoulders. He does have some polyuria. He states he feels like he might be dehydrated. He is frequently thirsty. The patient admits he has been drinking 316 ounce milksha kes daily, states that he has been doing this "since it got hot." He states he was diagnosed as a diabetic quite some time ago. His blood sugars were high. He states that afterwards he had blood tests run which showed his blood sugars were normal. He really cannot tell me any more details in regards to that. He states he currently does not see a primary care provider, only sees a heart doctor. He states this is "because the family doctor never did anything." - Related Data Allergies/Adverse Reactions: No Known Allergies Allergy (Verified 04/09/20 22:32) Home Medications: Medication list reviewed with patient Past Medical History - General Information source: Patient - Social History Smoking Status: Current Every Day Smoker Frequency of alcohol use: None Drug Abuse: None Family History: CAD, Hypertension. denies: DM, Malignancy Patient has homicidal ideation: No - Past Medical History Cardiac Medical History: Reports: Hx Congestive Heart Failure, Hx Coronary Arter y Disease, Hx Heart Attack - january 2019, Hx Hypercholesterolemia, Hx Hypertension Denies: Hx Atrial Fibrillation Pulmonary Medical History: Denies: Hx Asthma, Hx Bronchitis, Hx COPD, Hx Pneumonia, Hx Tuberculosis Neurological Medical History: Denies: Hx Seizures, Hx Parkinson's Disease Endocrine Medical History: Denies: Hx Hyperthyroidism, Hx Hypothyroidism Renal/ Medical History: Reports: Hx Renal Insufficiency. Denies: Hx End Stage Renal Disease, Hx Kidney Stones, Hx Peritoneal Dialysis GI Medical History: Reports: Hx Gastroesophageal Reflux Disease. Denies: Hx Cirrhosis, Hx Crohn's Disease, Hx Hepatitis, Hx Hiatal Hernia, Hx Ulcer, Hx Ulcerative Colitis Musculoskeletal Medical History: Denies Hx Arthritis, Denies Hx Gout Skin Medical History: Denies Hx Eczema, Denies Hx Psoriasis Psychiatric Medical History: Denies: Hx Bipolar Disorder, Hx Depression, Hx Schizophrenia Traumatic Medical History: Reports: Hx Fractures - left arm/shoulder Infectious Medical History: Denies: Hx Hepatitis Past Surgical History: Reports: Hx Cardiac Catheterization, Hx Coronary Stent - X2, Hx Tonsillectomy. Denies: Hx Appendectomy, Hx Bowel Surgery, Hx Cholecystectomy - Immunizations Hx Diphtheria, Pertussis, Tetanus Vaccination: - <5 yrs Review of Systems - Review of Systems Constitutional: Malaise EENT: See HPI -: Yes All other systems reviewed and negative Physical Exam - Vital signs Vitals: Temp Pulse Resp BP Pulse Ox 97.7 F 97 16 108/78 100 04/09/20 22:15 04/09/20 22:15 04/09/20 22:15 04/09/20 22:15 04/09/20 22:15 - Notes Notes: Vital signs reviewed, please refer to chart. Head is normocephalic, atraumatic. Pupils equal round, reactive to light. Neck is supple without meningismus. Heart is regular rate and rhythm. Lungs are clear to auscultation bilaterally. Abdomen is soft, nontender, normoactive bowel sounds throughout. Extremities without cyanosis, clubbing. Posterior calves are nontender. Peripheral pulses are equal. Skin is warm and dry. Patient is awake, alert, neurological exam is nonfocal. Course - Re-evaluation Re-evalutation: 04/10/20 00:13 Patient presents to the emergency department for evaluation. Laboratory inves tigations were obtained. The patient is markedly hyperglycemic. He is given IV insulin. He has mild hyperkalemia. This is likely secondary to dehydration. He is given a liter normal saline. Patient does not seem to have good insight into his multiple chronic illnesses. He has severe CHF, continues to smoke, has a history of coronary artery disease. He does not have a primary care provider at this time. I will contact medicine for admission. 04/10/20 00:[address] Alexandra. He believes the patient will need an insulin drip at that I have not blood glucose, will admit the patient to [facility] for further care. - Vital Signs Vital signs: Temp Pulse Resp BP Pulse Ox 97.7 F 97 16 108/78 100 04/09/20 22:36 04/09/20 22:15 04/09/20 22:15 04/09/20 22:15 04/09/20 22:15 - Laboratory Result Diagrams: 04/09/20 22:46 04/09/20 22:46 Laboratory results interpreted by me: 04/09/20 04/09/20 22:46 22:46 RBC 5.97 H Hgb 17.3 H RDW 19.8 H Sodium 122.1 L Potassium 5.5 H Chloride 85 L BUN 56 H Creatinine 2.37 H Est GFR ( Amer) 34 L Est GFR (MDRD) Non-Af 28 L Glucose 843 H* Alkaline Phosphatase 131 H Discharge - Discharge Clinical Impression: Hyperglycemia, Hyperkalemia Acute on chronic renal failure Qualifiers: Acute renal failure type: unspecified Chronic kidney disease stage: unspecified stage Qualified Code(s): N17.9 - Acute kidney failure, unspecified; N18.9 - Chronic kidney disease, unspecified Condition: Stable Disposition: ADMITTED INPATIENT Admitting Provider: Ibrahima (Hospitalist) Unit Admitted: IMCU Referrals: [facility] [Primary Care Provider] - Follow up as needed
[2020-04-10] MEDS ORDERED: NORMAL SALINE 1000 ML 1,000 ML IV ONE ×2 (00:15→12:30)
[2020-04-10] MEDS ORDERED: DEXTROSE 50%-WATER 25 GM/50 ML DISP.SYRIN IV PRN ×2 (00:47)
[2020-04-10] MEDS ORDERED: GLUCAGON,HUMAN RECOMB 1 MG INJ IM PRN (00:47)
[2020-04-10] MEDS ORDERED: ONDANSETRON HCL INJ/PF 4 MG/2 ML SDV IV PRN (00:47)
[2020-04-10] MEDS ORDERED: NORMAL SALINE 1000 ML 1,000 ML IV PRN (00:47)
[2020-04-10] MEDS ORDERED: DEXTROSE 40% GEL 15 GM TUBE PO PRN ×2 (00:47)
[2020-04-10] MEDS ORDERED: NORMAL SALINE 100 ML with INSULIN REGULAR, HUMAN 100 UNIT IV PRN ×2 (00:47)
--- NOTE | 2020-04-10 01:10 | PDOC H&P ---
History of Present Illness Admission Date/PCP: 04/10/20 00:48 [facility] History of Present Illness: MECHE MEJÍA is a 60 year old male with a history of coronary artery disease, hypertension, and possible heart failure who is a poor historian and quite cantankerous. [facility] of blurred vision for a couple of days. He does not know if he has been urinating more frequently because he takes 80 mg of Lasix twice a day. He has a history of chronic kidney disease but was not aware of it. He has a jacquard fixer in [place] he says is named Dr. Noe and he does not have any other physician. He says he goes to an urgent care once in a while but does not have a regular doctor. He said he was admitted here several years ago and was told that he had high blood sugar at that time but is never been treated for diabetes. He says he normally has a couple of chocolate milkshakes that he makes at home every day. In the ER his blood sugar was over 800 and he had an acute worsening of his chronic kidney disease. No numbness, weakness, or tingling. No chest pain or shortness of breath. No trouble with balance, chewing, or swallowing. No headaches or trouble with speech. Past Medical History Cardiac Medical History: Reports: Congestive Heart Failure, Coronary Artery Disease, Myocardial Infarction - january 2019, Hyperlipidema, Hypertension Denies: Atrial Fibrillation Pulmonary Medical History: Denies: Asthma, Bronchitis, Chronic Obstructive Pulmonary Disease (COPD), Pneumonia, Tuberculosis Neurological Medical History: Denies: Seizures Endocrine Medical History: Denies: Diabetes Mellitus Type 1, Diabetes Mellitus Type 2, Hyperthyroidism, Hypothyroidism Renal/ Medical History: Denies: End Stage Renal Disease GI Medical History: Reports: Gastroesophageal Reflux Disease Denies: Cirrhosis, Crohn's Disease, Hepatitis, Hiatal Hernia, Ulcerative Colitis Musculoskeltal Medical History: Denies: Arthritis, Gout Skin Medical History: Denies: Eczema, Psoriasis Psychiatric Medical History: Denies: Bipolar Disorder, Depression Hematology: Denies: Anemia, Hemophilia, Sickle Cell Disease, Bleeding Tendencies Past Surgical History Past Surgical History: Reports: Cardiac Catheterization, Coronary Stent - X2, Tonsillectomy Denies: Appendectomy, Cholecystectomy Social History Smoking Status: Current Every Day Smoker Frequency of Alcohol Use: None Hx Recreational Drug Use: No Drugs: None Hx Prescription Drug Abuse: No Family History Family History: CAD, Hypertension. denies: DM, Malignancy Parental Family History Reviewed: Yes Children Family History Reviewed: NA Sibling(s) Family History Reviewed.: Yes Medication/Allergy Home Medications: Aspirin [Adult Low Dose Aspirin EC] 81 mg PO DAILY 09/16/19 Atorvastatin Calcium [Lipitor 40 mg Tablet] 40 mg PO QHS 09/16/19 Clopidogrel Bisulfate [Plavix 75 mg Tablet] 75 mg PO DAILY 09/16/19 Furosemide [Lasix 40 mg Tablet] 80 mg PO BID 09/16/19 Lisinopril [Zestril] 20 mg PO DAILY 09/16/19 Metoprolol Succinate [Toprol Xl 50 mg Tab.sr] 50 mg PO DAILY 09/16/19 Amlodipine Besylate [Norvasc 5 mg Tablet] 5 mg PO DAILY 04/09/20 Metoprolol Succinate [Toprol Xl 50 mg Tab.sr] 75 mg PO QHS 04/09/20 Spironolactone [Aldactone 25 mg Tablet] 12.5 mg PO DAILY 04/09/20 Allergies/Adverse Reactions: No Known Allergies Allergy (Verified 04/09/20 22:32) Review of Systems All systems: reviewed and no additional remarkable complaints except as stated - All systems were reviewed and were negative except as noted in the HPI Physical Exam Vital Signs: Temp Pulse Resp BP Pulse Ox 97.7 F 97 16 108/78 100 04/09/20 22:36 04/09/20 22:15 04/09/20 22:15 04/09/20 22:15 04/09/20 22:15 Intake & Output 04/08/20 04/09/20 04/10/20 06:59 06:59 06:59 Intake Total 1000 Balance 1000 Weight 104.1 kg General appearance: PRESENT: no acute distress, cooperative - Argumentative, disheveled, obese Head exam: PRESENT: atraumatic, normocephalic Eye exam: PRESENT: EOMI, PERRLA. ABSENT: conjunctival injection, nystagmus, scleral icterus Ear exam: PRESENT: normal external ear exam Mouth exam: PRESENT: dry mucosa, neck supple Teeth exam: PRESENT: poor dentation Throat exam: ABSENT: post pharyngeal erythema Neck exam: PRESENT: full ROM. ABSENT: carotid bruit, JVD, lymphadenopathy, meningismus, tenderness, thyromegaly Respiratory exam: PRESENT: clear to auscultation ivan, symmetrical, unlabored. ABSENT: accessory muscle use, chest wall tenderness, crackles, prolonged expiratory phas, rhonchi, tachypnea, wheezes Cardiovascular exam: PRESENT: RRR, +S1, +S2 Pulses: PRESENT: normal carotid pulses Vascular exam: PRESENT: normal capillary refill GI/Abdominal exam: PRESENT: normal bowel sounds, soft. ABSENT: distended, guarding, rebound, tenderness Extremities exam: ABSENT: clubbing, pedal edema Musculoskeletal exam: PRESENT: ambulatory, normal inspection. ABSENT: deformity Neurological exam: PRESENT: alert, awake, oriented to person, oriented to place, oriented to time, CN II-XII grossly intact. ABSENT: motor sensory deficit - With the exception of some blurred vision but this is intermittent and visual torres are intact Psychiatric exam: PRESENT: appropriate affect, normal mood Skin exam: PRESENT: dry, warm Results Laboratory Results: 04/09/20 22:46 04/09/20 22:46 04/09/20 04/09/20 22:46 22:46 WBC 8.0 RBC 5.97 H Hgb 17.3 H Hct 50.3 MCV 84 MCH 28.9 MCHC 34.3 RDW 19.8 H Plt Count 243 Seg Neutrophils % 62.1 Sodium 122.1 L Potassium 5.5 H Chloride 85 L Carbon Dioxide 22 Anion Gap 15 BUN 56 H Creatinine 2.37 H Est GFR ( Amer) 34 L Glucose 843 H* Calcium 10.1 Total Bilirubin 0.8 AST 20 Alkaline Phosphatase 131 H Total Protein 7.9 Albumin 4.5 Assessment and Plan - Diagnosis (1) Hyperglycemia Is this a current diagnosis for this admission?: Yes Plan: This patient has likely had diabetes for some while but has been untreated. He has not been treating it. He is not on any medications for it. I recommended that he get up primary care provider other than his jacquard fixer whenever he is discharged. Because of the magnitude of his hyperglycemia, we are going to put him on insulin drip. We will start him on some IV fluids while monitoring him for signs of fluid overload. (2) Acute on chronic renal failure Qualifiers: Acute renal failure type: unspecified Chronic kidney disease stage: stage 3 (moderate) Qualified Code(s): N17.9 - Acute kidney failure, unspecified; N18.3 - Chronic kidney disease, stage 3 (moderate) Is this a current diagnosis for this admission?: Yes Plan: I think his baseline creatinine is around 1.7-1.8. We will hold his Lasix and cautiously hydrate him. (3) Hyperkalemia Is this a current diagnosis for this admission?: Yes Plan: This will likely correct with insulin and IV fluids. (4) Congestive heart failure Qualifiers: Heart failure type: unspecified Heart failure chronicity: unspecified Qualified Code(s): I50.9 - Heart failure, unspecified Is this a current diagnosis for this admission?: Yes Plan: He is not acutely exacerbated. We do not know what his heart failure parameters actually are, if indeed he actually has this diagnosis. We are going to try to get some records on him and we will monitor him for any signs of fluid overload. His Lasix is on hold for now. (5) Coronary artery disease Qualifiers: Coronary Disease-Associated Artery/Lesion type: [place] artery [place] vs. transplanted heart: [place] heart Associated angina: without angina Qualified Code(s): I25.10 - Atherosclerotic heart disease of [place] coronary artery without angina pectoris Is this a current diagnosis for this admission?: Yes Plan: We will continue his Plavix and his statin. Were continuing his Toprol but his other blood pressure medications are on hold for now because his blood pressure was at the low end of normal. (6) Hypertension Qualifiers: Hypertension type: essential hypertension Qualified Code(s): I10 - Essential (primary) hypertension Is this a current diagnosis for this admission?: Yes Plan: Most of his blood pressure medications are on hold now because his blood pressure was at the low end of normal. (7) Tobacco abuse disorder Is this a current diagnosis for this admission?: Yes Plan: Strongly recommended cessation in light of his coronary artery disease, chronic kidney disease, and diabetes, not to mention the possible heart failure. - Time Time Spent with patient: 35 or more minutes Anticipated discharge: Home Within: within 72 hours - Inpatient Certification Based on my medical assessment, after consideration of the patient's comorbidities, presenting symptoms, or acuity I expect that the services needed warrant INPATIENT care.: Yes I certify that my determination is in accordance with my understanding of Medicare's requirements for reasonable and necessary INPATIENT services [42 CFR 412.3e].: Yes Medical Necessity: Significant Comorbidiites Make Outpatient Treatment Too Risky, Need Close Monitoring Due to Risk of Patient Decompensation, Need For IV Fluids, Need For Continuous Telemetry Monitoring, Risk of Complication if Not Cared For in Hospital
[2020-04-10] MEDS ORDERED: INSULIN REG, HUMAN 100 UNIT/ML 3 ML VIAL (PYX) ONE (01:33)
[2020-04-10] MEDS: HEPARIN SOD (PORCINE) 5,000 UNIT/ML 1 ML VIAL SUBCUT SCH ×3 (06:01→21:51)
[2020-04-10 09:50] LABS: ANION GAP 10 (5-19); BLOOD UREA NITROGEN 49 mg/dL (7-20); CALCIUM 9.8 mg/dL (8.4-10.2); CARBON DIOXIDE 25 mmol/L (22-30); CHLORIDE 99 mmol/L (98-107); GLUCOSE 166 mg/dL (75-110)
[2020-04-10 09:59] LABS: POTASSIUM 4.3 mmol/L (3.6-5.0)
[2020-04-10] MEDS ORDERED: METOPROLOL SUCCINATE 50 MG TAB.SR.24H PO SCH (10:00)
[2020-04-10] MEDS ORDERED: CALCIUM CARBONATE 500 MG TAB.CHEW PO PRN ×2 (11:06→11:13)
[2020-04-10] MEDS ORDERED: INSULIN GLARGINE,HUM.REC.ANLOG 1,000 UNIT/10 ML VIAL (PYX) SUBCUT ONE (11:30)
--- NOTE | 2020-04-10 12:26 | PDOC PROGRESS REPORT ---
Subjective Progress Note for:: 04/10/20 Subjective:: The patient is a 60-year-old male with a past medical history of CHF, CAD, VA, hyperlipidemia, hypertension, GERD, and tobacco dependency with continuous use who was admitted 04/10/2020 with Acute on chronic renal failure and hyperglycemia. Patient was seen on morning rounds. He is found resting in bed, comfortably, on room air. He was sleeping but woke easily when I said his name. He tells me that he is feeling well. He does complain of continued fatigue, headaches, and blurred vision. He denies fever, chills, chest pain, palpitations, dyspnea, abdominal pain, nausea vomiting diarrhea. Has no questions or concerns at this time. Reason For Visit: HYPERGLYCEMIA Physical Exam Vital Signs: Temp Pulse Resp BP Pulse Ox 97.6 F 71 16 97/78 L 95 04/10/20 12:00 04/10/20 12:00 04/10/20 12:00 04/10/20 12:00 04/10/20 12:00 Intake & Output 04/09/20 04/10/20 04/11/20 06:59 06:59 06:59 Intake Total 1185 19 Balance 1185 19 Weight 106 kg General appearance: PRESENT: no acute distress, disheveled, obese, well- developed, well-nourished Head exam: PRESENT: atraumatic, normocephalic Eye exam: PRESENT: conjunctiva pink, EOMI, PERRLA. ABSENT: scleral icterus Mouth exam: PRESENT: moist, tongue midline Respiratory exam: PRESENT: clear to auscultation ivan, symmetrical, unlabored. ABSENT: rales, rhonchi, wheezes Cardiovascular exam: PRESENT: RRR, +S1, +S2. ABSENT: diastolic murmur, rubs, systolic murmur Vascular exam: PRESENT: normal capillary refill Extremities exam: PRESENT: full ROM. ABSENT: calf tenderness, clubbing, pedal edema Neurological exam: PRESENT: alert, awake, oriented to person, oriented to place, oriented to time, oriented to situation, CN II-XII grossly intact. ABSENT: motor sensory deficit Psychiatric exam: PRESENT: appropriate affect, normal mood. ABSENT: homicidal ideation, suicidal ideation Skin exam: PRESENT: dry, intact, warm. ABSENT: cyanosis, rash Results Laboratory Results: 04/09/20 22:46 04/10/20 08:26 04/09/20 04/09/20 04/10/20 22:46 22:46 08:26 WBC 8.0 RBC 5.97 H Hgb 17.3 H Hct 50.3 MCV 84 MCH 28.9 MCHC 34.3 RDW 19.8 H Plt Count 243 Seg Neutrophils % 62.1 Sodium 122.1 L 134.3 L Potassium 5.5 H 4.3 D Chloride 85 L 99 Carbon Dioxide 22 25 Anion Gap 15 10 BUN 56 H 49 H Creatinine 2.37 H 1.88 H Est GFR ( Amer) 34 L 44 L Glucose 843 H* 166 H Calcium 10.1 9.8 Total Bilirubin 0.8 AST 20 Alkaline Phosphatase 131 H Total Protein 7.9 Albumin 4.5 Assessment and Plan - Diagnosis (1) Acute on chronic renal failure Qualifiers: Acute renal failure type: unspecified Chronic kidney disease stage: stage 3 (moderate) Qualified Code(s): N17.9 - Acute kidney failure, unspecified; N18.3 - Chronic kidney disease, stage 3 (moderate) Is this a current diagnosis for this admission?: Yes Plan: Baseline creatinine is around 1.7-1.8. BUN and creatinine are slightly improved; 1.88/49. Continue to hold home dose spironolactone and furosemide. Additional IV fluids today. Avoid nephrotoxic medications as able. Obtain adequate glucose and blood pressure control. Follow-up chemistries. 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 A1c 10.3 Patient is placed on a consistent carb diet. Start glipizide with breakfast. Start Lantus 10 units daily Accu-Cheks before meals and at bedtime with Humalog for sliding scale coverage. Hypoglycemia protocol in place. Registered dietitian telehealth nurse educator consulted. (3) Congestive heart failure Qualifiers: Heart failure type: unspecified Heart failure chronicity: unspecified Qualified Code(s): I50.9 - Heart failure, unspecified Is this a current diagnosis for this admission?: Yes Plan: He is not acutely exacerbated. We do not know what his heart failure parameters actually are, if indeed he actually has this diagnosis. Records are requested. Currently holding furosemide and spironolactone secondary to acute on chronic renal failure. Monitor for fluid volume overload. Daily weights. Outpatient cardiology follow up. (4) Coronary artery disease Qualifiers: Coronary Disease-Associated Artery/Lesion type: [place] artery [place] vs. transplanted heart: [place] heart Associated angina: without angina Qualified Code(s): I25.10 - Atherosclerotic heart disease of [place] coronary artery without angina pectoris Is this a current diagnosis for this admission?: Yes Plan: We will continue his Plavix and his statin. Low dose Toprol with holding parameters due to hypotension. Monitor on telemetry. (5) Hypertension Qualifiers: Hypertension type: essential hypertension Qualified Code(s): I10 - Essential (primary) hypertension Is this a current diagnosis for this admission?: Yes Plan: Toprol 25 mg daily with holding parameters. Holding furosemide, spironolactone, and amlodipine secondary to hypotension and acute on chronic kidney injury. We will continue to monitor blood pressures and resume home medications as indicated. (6) Tobacco dependence Is this a current diagnosis for this admission?: Yes Plan: Smoking cessation encouraged. Nicotine replacement therapies provided. (7) Hyperglycemia Is this a current diagnosis for this admission?: Yes Plan: As above. (8) Hyperkalemia Is this a current diagnosis for this admission?: Yes Plan: Resolved. Follow-up chemistry. - Time Time Spent with patient: 25-34 minutes Medications reviewed and adjusted accordingly: Yes Anticipated discharge: Home Within: Other
[2020-04-10] MEDS: CLOPIDOGREL BISULFATE 75 MG TABLET PO SCH (12:54)
[2020-04-10] MEDS: INSULIN LISPRO 100 UNIT/ML 3 ML VIAL SUBCUT SCH ×2 (16:14→21:50)
[2020-04-10] MEDS ORDERED: ATORVASTATIN CALCIUM 40 MG TABLET PO SCH (22:00)
[2020-04-11] MEDS: HEPARIN SOD (PORCINE) 5,000 UNIT/ML 1 ML VIAL SUBCUT SCH ×2 (06:01→13:16)
[2020-04-11 06:23] LABS: ANION GAP 6 (5-19); BLOOD UREA NITROGEN 34 mg/dL (7-20); CARBON DIOXIDE 22 mmol/L (22-30); CHLORIDE 104 mmol/L (98-107); GLUCOSE 307 mg/dL (75-110); POTASSIUM 4.8 mmol/L (3.6-5.0)
[2020-04-11] MEDS: INSULIN LISPRO 100 UNIT/ML 3 ML VIAL SUBCUT SCH ×2 (07:51→12:13)
[2020-04-11] MEDS ORDERED: ONDANSETRON HCL INJ/PF 4 MG/2 ML SDV IV PRN (08:30)
[2020-04-11] MEDS: CLOPIDOGREL BISULFATE 75 MG TABLET PO SCH (09:54)
[2020-04-11] MEDS ORDERED: (PENDING PHARMACY ID) (Lisinopril [Zestril] 20 MG) PO SCH (10:00)
[2020-04-11] MEDS ORDERED: INSULIN GLARGINE,HUM.REC.ANLOG 1,000 UNIT/10 ML VIAL SUBCUT SCH (10:00)
[2020-04-11] MEDS ORDERED: AMLODIPINE BESYLATE 5 MG TABLET PO SCH (10:00)
[2020-04-11] MEDS ORDERED: METOPROLOL SUCCINATE 50 MG TAB.SR.24H PO SCH (10:00)
[2020-04-11] MEDS ORDERED: METOPROLOL SUCCINATE 25 MG TAB.SR.24H PO SCH (10:00)
[2020-04-11] MEDS ORDERED: ASPIRIN 81 MG TABLET, ENT COATED PO SCH (10:00)
[2020-04-11] MEDS ORDERED: LISINOPRIL 10 MG TABLET PO SCH (10:00)
[2020-04-11] MEDS ORDERED: GLIPIZIDE 5 MG TABLET PO SCH ×2 (10:00)
[2020-04-11] MEDS ORDERED: NICOTINE 21 MG/24 HR PATCH.TD24 TD SCH (10:00)
--- NOTE | 2020-04-11 13:30 | PDOC DISCHARGE SUMMARY ---
Impression - Admit/DC Date/PCP Admission Date/Primary Care Provider: 04/10/20 00:[address] [facility] Discharge Date: 04/11/20 - Discharge Diagnosis (1) Acute on chronic renal failure Is this a current diagnosis for this admission?: Yes (2) Diabetes Is this a current diagnosis for this admission?: Yes (3) Congestive heart failure Is this a current diagnosis for this admission?: Yes (4) Coronary artery disease Is this a current diagnosis for this admission?: Yes (5) Hypertension Is this a current diagnosis for this admission?: Yes (6) Tobacco dependence Is this a current diagnosis for this admission?: Yes (7) Hyperglycemia Is this a current diagnosis for this admission?: Yes (8) Hyperkalemia Is this a current diagnosis for this admission?: Yes - Additional Information Resuscitation Status: Full Code Discharge Diet: Cardiac, Diabetic Discharge Activity: Activity As Tolerated, Balance Activity w/Rest Referrals: [facility] [Outside] - 05/02/20 3:00 pm (Dr. Wolfe will call you at 3:00 p.m. Please be home when he calls you.) Prescriptions: Blood-Glucose Meter [Blood Glucose Meter] 1 unit MC BID #1 unit Blood Sugar Diagnostic [Blood Glucose Test] 1 each MC BID #60 strip Lancets [Blood Lancets] 1 each MC BID #60 each RX: Glipizide [Glucotrol 5 mg Tablet] 5 mg PO DAILY #30 tablet Insulin Glargine,Hum.rec.anlog [Lantus Insulin 100 Unit/mL Insulin Pen] 12 unit SUBCUT QHS #1 pen Pen Needle, Diabetic [Pen Bradley] 1 each MC QHS #30 dis.needle Home Medications: Aspirin [Adult Low Dose Aspirin EC] 81 mg PO DAILY 09/16/19 Atorvastatin Calcium [Lipitor 40 mg Tablet] 40 mg PO QHS 09/16/19 Clopidogrel Bisulfate [Plavix 75 mg Tablet] 75 mg PO DAILY 09/16/19 Lisinopril [Zestril] 20 mg PO Q12 09/16/19 Metoprolol Succinate [Toprol Xl 50 mg Tab.sr] 50 mg PO Q12 09/16/19 Amlodipine Besylate [Norvasc 5 mg Tablet] 5 mg PO DAILY 04/09/20 Calcium Carbonate [Tums Chewable 500 mg Tab.chew] 500 mg PO ASDIR PRN 04/10/20 Nicotine [Nicoderm 21 mg/24 Hr Transderm Patch] 1 patch TD DAILY 04/10/20 Blood Sugar Diagnostic [Blood Glucose Test] 1 each BID #60 strip 04/11/20 Blood-Glucose Meter [Blood Glucose Meter] 1 unit BID #1 unit 04/11/20 Glipizide [Glucotrol 5 mg Tablet] 5 mg PO DAILY #30 tablet 04/11/20 Insulin Glargine,Hum.rec.anlog [Lantus Insulin 100 Unit/mL Insulin Pen] 12 unit SUBCUT QHS #1 pen 04/11/20 Lancets [Blood Lancets] 1 each BID #60 each 04/11/20 Pen Needle, Diabetic [Pen Bradley] 1 each QHS #30 dis.needle 04/11/20 History of Present Illiness History of Present Illness: Per H&P by Dr. Alexandra: MECHE MEJÍA is a 60 year old male with a history of coronary artery disease, hypertension, and possible heart failure who is a poor historian and quite cantankerous. He came to the ER [facility] complaining of blurred vision for a couple of days. He does not know if he has been urinating more frequently because he takes 80 mg of Lasix twice a day. He has a history of chronic kidney disease but was not aware of it. He has a automotive refinisher in [place] he says is named Dr. Noe and he does not have any other physician. He says he goes to an urgent care once in a while but does not have a regular doctor. He said he was admitted here several years ago and was told that he had high blood sugar at that time but is never been treated for diabetes. He says he normally has a couple of chocolate milkshakes that he makes at home every day. In the ER his blood sugar was over 800 and he had an acute worsening of his chronic kidney disease. No numbness, weakness, or tingling. No chest pain or shortness of breath. No trouble with balance, chewing, or swallowing. No headaches or trouble with speech. Hospital Course Hospital Course: (1) Acute on chronic renal failure Acute worsening has resolved. Baseline creatinine is around 1.7-1.8. Recommend adequate blood pressure and glucose control. Follow up with PCP in 1 week. Recommend follow-up chemistry at this appointment. (2) Diabetes New diagnosis. A1c 10.3% Patient is placed on a consistent carb diet. Start glipizide with breakfast. Start Lantus 12 units daily While admitted, followed Accu-Cheks before meals and at bedtime with Humalog for sliding scale coverage. Sliding scale insulin discontinued at discharge. Patient provided opportunity to meet with the registered dietitian and tour leader. He is advised to continue checking his glucose twice daily keep a log, and presented to his PCP at his follow-up appointment. (3) Congestive heart failure He is not acutely exacerbated. We do not know what his heart failure parameters actually are, if indeed he actually has this diagnosis. Continue GRICEL inhibitor, beta-myranda, aspirin/Plavix, and statin therapy. Cardiac diet. PCP follow-up; consider cardiology consultation. (4) Coronary artery disease Stable No complaints of chest discomfort Patient was monitored on telemetry. Continue daily aspirin, Plavix, statin therapy. Antihypertensives as below (5) Hypertension Improved Continue home dose amlodipine, lisinopril and metoprolol. Encouraged lifestyle modification, dietary and medication compliance. Outpatient PCP follow-up. (6) Tobacco dependence Smoking cessation encouraged. Nicotine replacement therapies provided. (7) Hyperglycemia As above. (8) Hyperkalemia Resolved. Physical Exam Vital Signs: Temp Pulse Resp BP Pulse Ox 97.9 F 69 19 149/72 H 97 04/11/20 07:33 04/11/20 07:33 04/11/20 07:33 04/11/20 07:33 04/11/20 07:33 Intake & Output 04/10/20 04/11/20 04/12/20 06:59 06:59 06:59 Intake Total 1185 919 Balance 1185 919 Weight 106 kg 111.2 kg General appearance: PRESENT: no acute distress, cooperative, obese, well- developed, well-nourished Head exam: PRESENT: atraumatic, normocephalic Eye exam: PRESENT: conjunctiva pink, EOMI, PERRLA. ABSENT: scleral icterus Mouth exam: PRESENT: moist, tongue midline Respiratory exam: PRESENT: clear to auscultation ivan, symmetrical, unlabored. ABSENT: rales, rhonchi, wheezes Cardiovascular exam: PRESENT: RRR. ABSENT: diastolic murmur, rubs, systolic murmur Pulses: PRESENT: normal dorsalis pedis pul Vascular exam: PRESENT: normal capillary refill GI/Abdominal exam: PRESENT: normal bowel sounds, soft. ABSENT: distended, guarding, mass, organolmegaly, rebound, tenderness Rectal exam: PRESENT: deferred Extremities exam: PRESENT: full ROM. ABSENT: calf tenderness, clubbing, pedal edema Neurological exam: PRESENT: alert, awake, oriented to person, oriented to place, oriented to time, oriented to situation, CN II-XII grossly intact. ABSENT: motor sensory deficit Psychiatric exam: PRESENT: appropriate affect, normal mood. ABSENT: homicidal ideation, suicidal ideation Skin exam: PRESENT: dry, intact, warm. ABSENT: cyanosis, rash Results Laboratory Results: WBC 8.0 10^3/uL (4.0-10.5) 04/09/20 22:46 RBC 5.97 10^6/uL (4.35-5.55) H 04/09/20 22:46 Hgb 17.3 g/dL (13.5-17.0) H 04/09/20 22:46 Hct 50.3 % (37.9-51.0) 04/09/20 22:46 MCV 84 fl (80-97) 04/09/20 22:46 MCH 28.9 pg (27.0-33.4) 04/09/20 22:46 MCHC 34.3 g/dL (32.0-36.0) 04/09/20 22:46 RDW 19.8 % (11.5-14.0) H 04/09/20 22:46 Plt Count 243 10^3/uL (150-450) 04/09/20 22:46 Lymph % (Auto) 26.1 % (13-45) 04/09/20 22:46 [place] % (Auto) 9.2 % (3-13) 04/09/20 22:46 Eos % (Auto) 1.5 % (0-6) 04/09/20 22:46 Baso % (Auto) 1.1 % (0-2) 04/09/20 22:46 Absolute Neuts (auto) 5.0 10^3/uL (1.7-8.2) 04/09/20 22:46 Absolute Lymphs (auto) 2.1 10^3/uL (0.5-4.7) 04/09/20 22:46 Absolute Monos (auto) 0.7 10^3/uL (0.1-1.4) 04/09/20 22:46 Absolute Eos (auto) 0.1 10^3/uL (0.0-0.6) 04/09/20 22:46 Absolute Basos (auto) 0.1 10^3/uL (0.0-0.2) 04/09/20 22:46 Seg Neutrophils % 62.1 % (42-78) 04/09/20 22:46 PT 12.7 SEC (11.4-15.4) 04/09/20 22:46 INR 0.95 04/09/20 22:46 APTT 24.8 SEC (23.5-35.8) 04/09/20 22:46 Sodium 131.7 mmol/L (137-145) L 04/11/20 05:33 Potassium 4.8 mmol/L (3.6-5.0) 04/11/20 05:33 Chloride 104 mmol/L (98-107) 04/11/20 05:33 Carbon Dioxide 22 mmol/L (22-30) 04/11/20 05:33 Anion Gap 6 (5-19) 04/11/20 05:33 BUN 34 mg/dL (7-20) H 04/11/20 05:33 Creatinine 1.74 mg/dL (0.52-1.25) H 04/11/20 05:33 Est GFR ( Amer) 49 (>60) L 04/11/20 05:33 Est GFR (MDRD) Non-Af 40 (>60) L 04/11/20 05:33 Glucose 307 mg/dL (75-110) H 04/11/20 05:33 POC Glucose 343 mg/dL (70-110) H 04/11/20 07:34 Hemoglobin A1c % 13.1 % (4.7-6.0) H 04/09/20 22:46 Calcium 9.0 mg/dL (8.4-10.2) 04/11/20 05:33 Total Bilirubin 0.8 mg/dL (0.2-1.3) 04/09/20 22:46 Direct Bilirubin 0.0 mg/dL (0.0-0.4) 04/09/20 22:46 Neonat Total Bilirubin Not Reportable 04/09/20 22:46 Neonat Direct Bilirubin Not Reportable 04/09/20 22:46 Neonat Indirect Bili Not Reportable 04/09/20 22:46 AST 20 U/L (17-59) 04/09/20 22:46 ALT 19 U/L (<50) 04/09/20 22:46 Alkaline Phosphatase 131 U/L (38-126) H 04/09/20 22:46 Total Protein 7.9 g/dL (6.3-8.2) 04/09/20 22:46 Albumin 4.5 g/dL (3.5-5.0) 04/09/20 22:46 Plan Plan of Treatment: Patient is discharged home in stable condition. He is advised to follow-up with his primary care provider within 1 week. He is instructed to take his medications as prescribed. Continue a cardiac/diabetic diet. Continue check glucose twice daily; keep a log and present this to PCP at follow-up appointment. Return to the emergency department as needed for concerning symptoms. Time Spent: Greater than 30 Minutes Stroke Is this a Stroke Patient?: No Acute Heart Failure - Is this a Heart Failure Patient?: No
[2020-04-11 13:51] VITALS: BP 97/78
== END 2020-04-11 15:24 | disposition home or self-care (01) | DRG 638 ==
LOC: ER 22:08 → EH 04-10 00:48 → 3W 04-10 01:31
PROVIDERS: ADMIT Family Medicine; ATTEND Registered Nurse
DX: E11.65 Type 2 diabetes mellitus with hyperglycemia (principal); N17.9 Acute kidney failure, unspecified; I13.0 Hypertensive heart and chronic kidney disease with heart failure and stage 1 through stage 4 chronic kidney disease, or unspecified chronic kidney disease; E11.22 Type 2 diabetes mellitus with diabetic chronic kidney disease; I25.10 Atherosclerotic heart disease of native coronary artery without angina pectoris; E87.5 Hyperkalemia; E78.5 Hyperlipidemia, unspecified; K21.9 Gastro-esophageal reflux disease without esophagitis; E66.9 Obesity, unspecified; N18.3 Chronic kidney disease, stage 3 (moderate); E78.00 Pure hypercholesterolemia, unspecified; E86.0 Dehydration; F17.210 Nicotine dependence, cigarettes, uncomplicated; I25.2 Old myocardial infarction; Z79.4 Long term (current) use of insulin; Z79.899 Other long term (current) drug therapy; Z79.82 Long term (current) use of aspirin; Z79.02 Long term (current) use of antithrombotics/antiplatelets; Z95.5 Presence of coronary angioplasty implant and graft; Z82.49 Family history of ischemic heart disease and other diseases of the circulatory system
CPT/HCPCS: 36415; 80048; 80053; 82962; 83036; 85025; 85610; 85730; 99284; J1644; J1815; J7030; J7050

== ENCOUNTER 2020-04-16 18:31 | Emergency (ER) | payer SELFPAY ==
--- NOTE | 2020-04-16 19:45 | ER Document Report ---
ED Medical Screen (RME) - General Chief Complaint: High Blood Sugar Stated Complaint: HIGH BLOOD SUGAR Time Seen by Provider: 04/16/20 19:38 Primary Care Provider: [facility] [Primary Care Provider] - Follow up as needed Mode of Arrival: Ambulatory Information source: Patient Notes: 60-year-old male presented to ED for elevated sugar. He states his been high all day today and yesterday. When he came into the emergency room his Accu-Chek was 585. He states he has a history of a heart attack high cholesterol high blood pressure he has stents. He states he does not know how many there is in the records here. He is diabetic type II takes pills and insulin. States he takes insulin at nighttime. Dates he smokes 2 cigarettes a day does not drink or do any drugs. I have greeted and performed a rapid initial assessment of this patient. A comprehensive ED assessment and evaluation of the patient, analysis of test results and completion of medical decision making process will be conducted by an additional ED providers. TRAVEL OUTSIDE OF THE [place] IN LAST 30 DAYS: No - Related Data Allergies/Adverse Reactions: No Known Allergies Allergy (Verified 04/09/20 22:32) Past Medical History - Past Medical History Cardiac Medical History: Reports: Hx Congestive Heart Failure, Hx Coronary Artery Disease, Hx Heart Attack - january 2019, Hx Hypercholesterolemia, Hx Hypertension Denies: Hx Atrial Fibrillation Pulmonary Medical History: Denies: Hx Asthma, Hx Bronchitis, Hx COPD, Hx Pneumonia, Hx Tuberculosis Neurological Medical History: Denies: Hx Seizures, Hx Parkinson's Disease Endocrine Medical History: Denies: Hx Diabetes Mellitus Type 1, Hx Diabetes Mellitus Type 2, Hx Hyperthyroidism, Hx Hypothyroidism Renal/ Medical History: Reports: Hx Renal Insufficiency. Denies: Hx End Stage Renal Disease, Hx Kidney Stones, Hx Peritoneal Dialysis GI Medical History: Reports: Hx Gastroesophageal Reflux Disease. Denies: Hx Cirrhosis, Hx Crohn's Disease, Hx Hepatitis, Hx Hiatal Hernia, Hx Ulcer, Hx Ulcerative Colitis Musculoskeltal Medical History: Denies Hx Arthritis, Denies Hx Gout Skin Medical History: Denies Hx Eczema, Denies Hx Psoriasis Psychiatric Medical History: Denies: Hx Bipolar Disorder, Hx Depression, Hx Schizophrenia Traumatic Medical History: Reports: Hx Fractures - left arm/shoulder Infectious Medical History: Denies: Hx Hepatitis Past Surgical History: Reports: Hx Cardiac Catheterization, Hx Coronary Stent - X2, Hx Tonsillectomy. Denies: Hx Appendectomy, Hx Bowel Surgery, Hx Cholecystectomy - Immunizations Hx Diphtheria, Pertussis, Tetanus Vaccination: - <5 yrs Physical Exam - Vital signs Vitals: Temp Pulse Resp BP Pulse Ox 98.2 F 68 18 127/77 H 96 04/16/20 19:22 04/16/20 19:22 04/16/20 19:22 04/16/20 19:22 04/16/20 19:22 Course - Vital Signs Vital signs: Temp Pulse Resp BP Pulse Ox 98.2 F 68 18 127/77 H 96 04/16/20 19:22 04/16/20 19:22 04/16/20 19:22 04/16/20 19:22 04/16/20 19:22 Doctor's Discharge - Discharge [facility]errals: [facility] [Primary Care Provider] - Follow up as needed
[2020-04-16] MEDS ORDERED: NORMAL SALINE 1000 ML 1,000 ML IV ONE (19:47)
[2020-04-16 20:21] LABS: ABSOLUTE BASOPHILS # (AUTO) 0.1 10^3/uL (0.0-0.2); ABSOLUTE EOSINOPHILS # (AUTO) 0.2 10^3/uL (0.0-0.6); ABSOLUTE LYMPHOCYTES (AUTO) 2.2 10^3/uL (0.5-4.7); ABSOLUTE MONOCYTES (AUTO) 0.7 10^3/uL (0.1-1.4); ABSOLUTE NEUT (AUTO) 5.2 10^3/uL (1.7-8.2); BASOPHILS % (AUTO) 0.9 % (0-2); EOSINOPHILS % (AUTO) 2.1 % (0-6); HEMATOCRIT 47.7 % (37.9-51.0); HEMOGLOBIN 16.6 g/dL (13.5-17.0); MEAN CORPUSCULAR HEMOGLOBIN 29.5 pg (27.0-33.4); MEAN CORPUSCULAR HGB CONC 34.9 g/dL (32.0-36.0); MEAN CORPUSCULAR VOLUME 85 fl (80-97); MONOCYTES % (AUTO) 8.4 % (3-13); PLATELET COUNT 277 10^3/uL (150-450); RED BLOOD COUNT 5.63 10^6/uL (4.35-5.55); RED CELL DISTRIBUTION WIDTH 19.1 % (11.5-14.0); SEGMENTED NEUTROPHILS % (AUTO) 62.6 % (42-78); TOTAL CELLS COUNTED % (AUTO) 100 %; WHITE BLOOD COUNT 8.3 10^3/uL (4.0-10.5)
[2020-04-16 20:41] LABS: APPEARANCE,URINE CLEAR; BILIRUBIN,URINE NEGATIVE (NEGATIVE); COLOR,URINE STRAW; GLUCOSE, URINE >=500 mg/dL (NEGATIVE); KETONES,URINE NEGATIVE (NEGATIVE); LEUKOCYTE ESTERASE,URINE NEGATIVE (NEGATIVE); NITRITE,URINE NEGATIVE (NEGATIVE); PROTEIN,URINE NEGATIVE (NEGATIVE); URINE SPECIFIC GRAVITY 1.023; UROBILINOGEN,URINE NEGATIVE mg/dL (<2.0)
[2020-04-16 20:43] LABS: ALBUMIN 4.4 g/dL (3.5-5.0); ALKALINE PHOSPHATASE 107 U/L (38-126); ANION GAP 10 (5-19); ASPARTATE AMINO TRANSFERASE 27 U/L (17-59); BILIRUBIN,DIRECT 0.1 mg/dL (0.0-0.4); BILIRUBIN,TOTAL 0.5 mg/dL (0.2-1.3); BLOOD UREA NITROGEN 35 mg/dL (7-20); CALCIUM 9.6 mg/dL (8.4-10.2); CARBON DIOXIDE 26 mmol/L (22-30); CHLORIDE 93 mmol/L (98-107); TOTAL PROTEIN 7.7 g/dL (6.3-8.2)
[2020-04-16 20:51] LABS: GLUCOSE 559 mg/dL (75-110)
[2020-04-17] MEDS ORDERED: INSULIN REG, HUMAN 100 UNIT/ML 3 ML VIAL (PYX) SUBCUT ONE (03:49)
--- NOTE | 2020-04-17 03:50 | ER Document Report ---
ED Blood Sugar Problem - General Chief Complaint: High Blood Sugar Stated Complaint: HIGH BLOOD SUGAR Time Seen by Provider: 04/16/20 19:38 Primary Care Provider: NAHOMY BUTLER DO [NO LOCAL MD] - 04/18/20 Mode of Arrival: Ambulatory Notes: Patient is a 60-year-old male that comes emergency department for chief complaint of concerns about his elevated blood sugar. He states it has been high all day yesterday and today. He states that before he came to the emergency department his Accu-Chek was 585. He denies any symptoms including lightheadedness, nausea, vomiting, shortness of breath, chest pain, fever/chills. He states he is only recently on Levemir along with oral glucose, he states he was admitted recently for uncontrolled diabetes and blood pressure. Past medical history also includes [place], hyper lipidemia, smoking (current). Patient states his primary care follow-up is not for 2 weeks. Patient does admit to eating bread and drinking sweet teas. TRAVEL OUTSIDE OF THE [place] IN LAST 30 DAYS: No - Related Data Allergies/Adverse Reactions: No Known Allergies Allergy (Verified 04/09/20 22:32) Past Medical History - General Information source: Patient - Social History Smoking Status: Current Every Day Smoker Frequency of alcohol use: None Drug Abuse: None Lives with: Family Family History: CAD, Hypertension. denies: DM, Malignancy - Past Medical History Cardiac Medical History: Reports: Hx Congestive Heart Failure, Hx Coronary Artery Disease, Hx Heart Attack - january 2019, Hx Hypercholesterolemia, Hx Hypertension Denies: Hx Atrial Fibrillation Pulmonary Medical History: Denies: Hx Asthma, Hx Bronchitis, Hx COPD, Hx Pneumonia, Hx Tuberculosis Neurological Medical History: Denies: Hx Seizures, Hx Parkinson's Disease Endocrine Medical History: Reports: Hx Diabetes Mellitus Type 2. Denies: Hx Diabetes Mellitus Type 1, Hx Hyperthyroidism, Hx Hypothyroidism Renal/ Medical History: Reports: Hx Renal Insufficiency. Denies: Hx End Stage Renal Disease, Hx Kidney Stones, Hx Peritoneal Dialysis GI Medical History: Reports: Hx Gastroesophageal Reflux Disease. Denies: Hx Cirrhosis, Hx Crohn's Disease, Hx Hepatitis, Hx Hiatal Hernia, Hx Ulcer, Hx Ulcerative Colitis Musculoskeletal Medical History: Denies Hx Arthritis, Denies Hx Gout Skin Medical History: Denies Hx Eczema, Denies Hx Psoriasis Psychiatric Medical History: Denies: Hx Bipolar Disorder, Hx Depression, Hx Schizophrenia Traumatic Medical History: Reports: Hx Fractures - left arm/shoulder Infectious Medical History: Denies: Hx Hepatitis Past Surgical History: Reports: Hx Cardiac Catheterization, Hx Coronary Stent - X2, Hx Tonsillectomy. Denies: Hx Appendectomy, Hx Bowel Surgery, Hx Cholecystectomy - Immunizations Hx Diphtheria, Pertussis, Tetanus Vaccination: - <5 yrs Review of Systems - Review of Systems Constitutional: No symptoms reported EENT: No symptoms reported Cardiovascular: No symptoms reported Respiratory: No symptoms reported Gastrointestinal: No symptoms reported Genitourinary: No symptoms reported Male Genitourinary: No symptoms reported Musculoskeletal: No symptoms reported Skin: No symptoms reported Hematologic/Lymphatic: No symptoms reported Neurological/Psychological: No symptoms reported Physical Exam - Vital signs Vitals: Temp Pulse Resp BP Pulse Ox 98.2 F 68 18 127/77 H 96 04/16/20 19:22 04/16/20 19:22 04/16/20 19:22 04/16/20 19:22 04/16/20 19:22 - Notes Notes: GENERAL: Alert, interacts well. No acute distress. Talkative and well-appearing HEAD: Normocephalic, atraumatic. EYES: Pupils equal, round, and reactive to light. Extraocular movements intact. ENT: Oral mucosa dry, tongue midline. Oropharynx unremarkable. Airway patent. LUNGS: Clear to auscultation bilaterally, no wheezes, rales, or rhonchi. No respiratory distress. Non-tender chest wall. HEART: Regular rate and rhythm. No murmur ABDOMEN: Soft, non-tender. Non-distended. EXTREMITIES: Moves all 4 extremities spontaneously. No edema, normal radial and dorsalis pedis pulses bilaterally. No cyanosis. BACK: no cervical, thoracic, lumbar midline tenderness. No saddle anesthesia, normal distal neurovascular exam. Moves all extremities in full range of motion. NEUROLOGICAL: Alert and oriented x3. Normal speech. Cranial nerves II through XII grossly intact. Strength 5/5 in all extremities. PSYCH: Normal affect, normal mood. SKIN: Warm, dry, normal turgor. No rashes or lesions noted. Course - Re-evaluation Re-evalutation: CBC unremarkable. Chemistry does show hyperglycemia in the 500s but anion gap and bicarbonate are normal. His sodium is only low before correction. Creatinine is actually his baseline. Urine shows dehydration. Patient has absolutely no symptoms. Patient is new to diabetes, he admits to poor diet, he is compliant with his medications however. Patient was given insulin and fluids, blood sugar significantly improved, he will be given 1 more bolus of fluids and then I discussed options with patient. He is on Levemir and oral medications, I feel if he improves his diet his blood sugars will significantly improve, I discussed this in detail, patient states he wants a sooner follow-up, he was provided with the [place] medical referral and he will call on Saturday to get a closer appointment. Patient has no other complaints and he is requesting discharge. Stable and well-appearing at time of discharge. - Vital Signs Vital signs: Temp Pulse Resp BP Pulse Ox 98.5 F 68 16 154/84 H 97 04/17/20 06:42 04/16/20 19:22 04/17/20 06:42 04/17/20 06:42 04/17/20 06:42 - Laboratory Result Diagrams: 04/16/20 20:00 04/16/20 20:00 Laboratory results interpreted by me: 04/16/20 04/16/20 04/16/20 20:00 20:00 20:10 RBC 5.63 H RDW 19.1 H Sodium 128.6 L Chloride 93 L BUN 35 H Creatinine 1.85 H Est GFR ( Amer) 45 L Est GFR (MDRD) Non-Af 37 L Glucose 559 H* POC Glucose Urine Glucose (UA) >=500 H 04/17/20 04/17/20 03:07 05:11 RBC RDW Sodium Chloride BUN Creatinine Est GFR ( Amer) Est GFR (MDRD) Non-Af Glucose POC Glucose 383 H 374 H Urine Glucose (UA) Discharge - Discharge Clinical Impression: Hyperglycemia Uncontrolled type 2 diabetes mellitus Qualifiers: Glycemic state: with hyperglycemia Qualified Code(s): E11.65 - Type 2 diabetes mellitus with hyperglycemia Condition: Stable Disposition: HOME, SELF-CARE Additional Instructions: You have been treated for your uncontrolled blood sugars tonight. However no concerning findings are noted otherwise tonight. You do need better management of your glucose, you need a primary care follow-up and adjustments. In addition to this you need to avoid the bread and tea that you have been drinking, stick to proteins and vegetables especially during this time where your blood sugar is very variable. Please call the listed referral on Saturday to be seen in the office in very close follow-up for additional management of your diabetes. Return if you worsen including dizziness, vomiting, fever, or any other concerning or worsening symptoms. Referrals: NAHOMY BUTLER DO [NO LOCAL MD] - 04/18/20
[2020-04-17] MEDS ORDERED: NORMAL SALINE 1000 ML 1,000 ML IV ONE (05:24)
[2020-04-17 06:53] VITALS: BP 154/84
== END 2020-04-17 06:53 | disposition home or self-care (01) ==
LOC: ER 18:31
DX: E11.65 Type 2 diabetes mellitus with hyperglycemia (principal); F17.200 Nicotine dependence, unspecified, uncomplicated; Z79.84 Long term (current) use of oral hypoglycemic drugs; I50.9 Heart failure, unspecified; I25.10 Atherosclerotic heart disease of native coronary artery without angina pectoris; E78.00 Pure hypercholesterolemia, unspecified; I11.0 Hypertensive heart disease with heart failure; I25.2 Old myocardial infarction
CPT/HCPCS: 99284; 96360; 96361; 36415; 82962; 85025; 80053; 81001; J1815; J7030 ×2

== ENCOUNTER → 2020-10-12 | Outpatient (CLI) | payer OTHER ==
[2020-10-13 08:51] LABS: ABSOLUTE EOSINOPHILS # (AUTO) 0.2 10^3/uL (0.0-0.6); ABSOLUTE LYMPHOCYTES (AUTO) 2.2 10^3/uL (0.5-4.7); ABSOLUTE MONOCYTES (AUTO) 0.8 10^3/uL (0.1-1.4); ABSOLUTE NEUT (AUTO) 4.7 10^3/uL (1.7-8.2); BASOPHILS % (AUTO) 0.6 % (0-2); EOSINOPHILS % (AUTO) 2.7 % (0-6); HEMATOCRIT 50.4 % (37.9-51.0); HEMOGLOBIN 17.3 g/dL (13.5-17.0); LYMPHOCYTES % (AUTO) 27.4 % (13-45); MEAN CORPUSCULAR HEMOGLOBIN 28.3 pg (27.0-33.4); MEAN CORPUSCULAR HGB CONC 34.4 g/dL (32.0-36.0); MEAN CORPUSCULAR VOLUME 82 fl (80-97); MONOCYTES % (AUTO) 9.9 % (3-13); PLATELET COUNT 257 10^3/uL (150-450); RED BLOOD COUNT 6.12 10^6/uL (4.35-5.55); SEGMENTED NEUTROPHILS % (AUTO) 59.4 % (42-78); TOTAL CELLS COUNTED % (AUTO) 100 %; WHITE BLOOD COUNT 7.9 10^3/uL (4.0-10.5)
[2020-10-13 08:59] LABS: ALBUMIN 4.2 g/dL (3.5-5.0); ALKALINE PHOSPHATASE 112 U/L (38-126); ANION GAP 5 (5-19); ASPARTATE AMINO TRANSFERASE 22 U/L (17-59); BILIRUBIN,DIRECT 0.3 mg/dL (0.0-0.4); BILIRUBIN,TOTAL 0.7 mg/dL (0.2-1.3); BLOOD UREA NITROGEN 45 mg/dL (7-20); CALCIUM 9.9 mg/dL (8.4-10.2); CARBON DIOXIDE 30 mmol/L (22-30); CHLORIDE 102 mmol/L (98-107); CHOLESTEROL 164.59 mg/dL (0-200); GLUCOSE 149 mg/dL (75-110); TOTAL PROTEIN 7.6 g/dL (6.3-8.2); TRIGLYCERIDES 231 mg/dL (<150)
[2020-10-13 09:10] LABS: DIRECT LDL 85 mg/dL (<100)
[2020-10-13 09:14] LABS: VLDL CHOLESTEROL 46.2 mg/dL (10-31)
== END ==
LOC: CCC 09:10
PROVIDERS: ATTEND Family Medicine
DX: I50.9 Heart failure, unspecified (principal)
CPT/HCPCS: 36415; 80053; 80061; 83735; 83880; 85025